=== PATIENT | female | born 1950 | race Caucasian/White ===

== ENCOUNTER 2020-06-07 11:25 | Outpatient (RCR) | payer MEDICARE, SELFPAY ==
[2017-02-23 12:22] VITALS: BMI 31.8
[2020-06-07] MEDS: COVID-19 VACC, MRNA(PFIZER)/PF 30 MCG/0.3 ML SYRINGE IM (08:30)
[2020-06-28] MEDS: COVID-19 VACC, MRNA(PFIZER)/PF 30 MCG/0.3 ML SYRINGE IM (07:57)
== END 2020-06-07 23:59 ==
LOC: IMMUN 11:25
PROVIDERS: PCP Internal Medicine; Referring Provider Family Medicine; Visit Provider Family Medicine
DX: Z23 Encounter for immunization (principal)
CPT/HCPCS: 0001A; 0002A

== ENCOUNTER → 2021-12-16 | Outpatient (CLI) | payer MEDICARE, SELFPAY ==
--- NOTE | 2021-12-16 10:45 | VDLE_ITS ---
Reason For Study: Edema RIGHT LEFT GSV is normal. GSV is normal. CFV is compressible, spontaneous, phasic, CFV is compressible, spontaneous, phasic, competent and demonstrates normal competent, and demonstrates normal augmentation. augmentation. FV is compressible, spontaneous, phasic, FV is compressible, spontaneous, phasic, competent and demonstrates normal competent and demonstrates normal augmentation. augmentation. POP V is compressible, spontaneous, phasic, POP V is compressible, spontaneous, phasic, competent and demonstrates normal competent and demonstrates normal augmentation. augmentation. T/P Trunk is compressible. T/P Trunk is compressible. PTV is compressible. PTV is compressible. RT PerV is compressible. LT PerV is compressible. Procedure This is a venous duplex using B-mode, color flow and spectral Doppler. Exam performed in department. A preliminary report was called and/or faxed to Dr. Griffiths. VL/Venous Duplex US - Jude Extrem Interpretation Summary Deep veins of the lower extremities are bilaterally patent and compressible seg mentally. There is no evidence of deep vein thrombosis on either side. Valvular competence appears in tact within the proximal deep venous systems bilaterally. The great saphenous veins appear bila terally patent and compressible segmentally. Ordering Physician: Colby Griffiths Referring Physician: Yael Cain Performed By: Liset Jolly RVT
== END | disposition home or self-care (01) ==
LOC: CVS 10:44
PROVIDERS: PCP Internal Medicine; Referring Provider Podiatrist; Visit Provider Podiatrist
DX: R60.0 Localized edema (principal); I87.2 Venous insufficiency (chronic) (peripheral)
CPT/HCPCS: 93970

== ENCOUNTER → 2022-03-04 | Outpatient (CLI) | payer MEDICARE, SELFPAY ==
--- NOTE | 2022-03-04 12:34 | VDLE_ITS ---
Reason For Study: LEG PAIN RIGHT LEFT CFV is compressible, spontaneous, phasic, CFV is compressible, spontaneous, phasic, competent and demonstrates normal competent, and demonstrates normal augmentation. augmentation. FV is compressible, spontaneous, phasic, FV is compressible, spontaneous, phasic, competent and demonstrates normal competent and demonstrates normal augmentation. augmentation. POP V is compressible, spontaneous, phasic, POP V is compressible, spontaneous, phasic, competent and demonstrates normal competent and demonstrates normal augmentation. augmentation. T/P Trunk is compressible. T/P Trunk is compressible. PTV is compressible. PTV is compressible. RT PerV is compressible. LT PerV is compressible. SFJ is competent and measures 0.65 x 0.67 cm. SFJ is competent and measures 0.64 x 0.62 cm. GSV proximal thigh measures 0.45 x 0.47 cm. GSV proximal thigh measures 0.35 x 0.40 cm. GSV at knee measures 0.35 x 0.38 cm. GSV at knee measures 0.20 x 0.22 cm. GSV is competent throughout. GSV is competent throughout. SSV proximal calf is competent and measures SSV proximal calf is competent and measures 0.28 x 0.30 cm. 0.30 x 0.34 cm. Procedure Exam performed in department. This is a venous duplex using B-mode, color flow and spectral Doppler. The exam was diagnostic. VL/Venous Duplex US - Jude Extrem Interpretation Summary Deep veins of the lower extremities are bilaterally patent and compressible seg mentally. There is no evidence of deep vein thrombosis on either side. Valvular competence appears in tact within the proximal deep venous systems bilaterally. The great saphenous veins appear bila terally patent and compressible segmentally. Sapheno-femoral junctions are bilaterally competent . Valvular competence appears to be intact segmentally within the great saphenous veins bilaterally. Small saphenous veins are patent and competent bilaterally. Ordering Physician: Colby Griffiths Performed By: Joni Burns RVT
== END | disposition home or self-care (01) ==
LOC: CVS 12:33
PROVIDERS: PCP Internal Medicine; Visit Provider Podiatrist
DX: M79.661 Pain in right lower leg (principal); M79.662 Pain in left lower leg; I87.2 Venous insufficiency (chronic) (peripheral); R60.0 Localized edema
CPT/HCPCS: 93970

== ENCOUNTER 2023-09-13 12:54 | Emergency (ER) | payer MEDICARE, SELFPAY ==
[2023-09-13 12:55] VITALS: BP 191/70; PULSE 77; RESP 16; TEMP 36.4; O2SAT 98; BMI 32.4
--- NOTE | 2023-09-13 12:58 | RAD_ITS ---
INDICATION: INJURY EXAMINATION/TECHNIQUE: X-RAY - LEFT XR Elbow Min 3 Views COMPARISON: No relevant prior comparison study available FINDINGS: SOFT TISSUES: No soft tissue swelling or gas. No radiopaque foreign body. BONES/JOINTS: There is displacement of the anterior fat pad. There is an intra-articular slightly depressed fracture of the radial head. Normal alignment. Preservation of the joint space. No sclerotic or destructive changes observed. RAD/Elbow min 3 Views IMPRESSION: Fracture of the radial head. Electronically Signed: Juan Remy MD at 13:38 EDT ,
--- NOTE | 2023-09-13 12:58 | RAD_ITS ---
INDICATION: INJURY EXAMINATION/TECHNIQUE: X-RAY - LEFT XR Wrist Min 3 Views 3 VIEWS COMPARISON: No relevant prior comparison study available FINDINGS: SOFT TISSUES: No soft tissue swelling or gas. No radiopaque foreign body. BONES/JOINTS: No acute fracture or subluxation.. Normal alignment. Preservation of the joint space.. No sclerotic or destructive changes observed. RAD/Wrist min 3 Views IMPRESSION: No evidence of acute fracture. Electronically Signed: Juan Remy MD at 13:34 EDT ,
--- NOTE | 2023-09-13 14:08 | EDS_ITS ---
HPI <CARRIE Mancia - Last Filed: 09/13/23 14:59> History of Present Illness Chief Complaint: Upper Extremity Injury Narrative Narrative: Patient presenting today after a mechanical fall that occurred this afternoon. She reports that she was at the park with [place] when she stepped off the [place] and lost her balance and fell onto her left knee and left elbow. She reports pain to her left elbow and left wrist with an abrasion to her left knee. Tetanus is not up-to-date. She did not hit her head and denies LOC. She is able to ambulate. PFSH <CARRIE Mancia - Last Filed: 09/13/23 14:59> PFSH Medical History Painful orthopaedic hardware Home Medications ?Medication ?Instructions ?Recorded ?Last Taken ?Type hydrocodone-acetaminophen 5-325mg 1 tab PO Q6H PRN PRN Pain ##14 02/12/17 Unknown Rx 5mg-325mg calcium carbonate 600 mg-vitamin 2 ea PO DAILY 02/20/17 Unknown History D3 12.5 mcg (500 unit) capsule carbidopa 25 mg-levodopa 100 mg 2 tab PO QHS 02/20/17 Unknown History tablet omeprazole 20 mg capsule,delayed 20 mg PO DAILY 02/20/17 02/23/17 08:00 History release simvastatin 40 mg tablet 40 mg PO QHS 02/20/17 Unknown History hydrocodone-acetaminophen 5-325mg 1 tab PO Q4H PRN PRN Pain 3 days 09/13/23 Unknown Rx 5mg-325mg #10 TABLETS Allergy/AdvReac Type Severity Reaction Status Date / Time meloxicam Allergy Mild Rash Verified 09/13/23 12:57 celecoxib AdvReac Hives Verified 09/13/23 12:57 prednisone AdvReac Hives Verified 09/13/23 12:57 Surgical History H/O right wrist surgery H/O: hysterectomy Social History Smoking Status: Former smoker alcohol intake: never ROS <CARRIE Mancia - Last Filed: 09/13/23 14:59> ROS ED Constitutional Constitutional ED: Denies chills or fever(s) Cardiovascular Cardiovascular: Denies chest pain Respiratory/Chest Respiratory/Chest: Denies dyspnea Gastrointestinal Gastrointestinal: Denies abdominal pain Musculoskeletal Musculoskeletal: Reports arthralgias Integumentary Reports Abrasions Neurologic Neurologic: Denies paresthesias EXAM <CARRIE Mancia - Last Filed: 09/13/23 14:59> Physical Exam Const Vital Signs: 09/13/23 12:55 Temperature 97.6 F L Temperature Source Temporal Pulse Rate 77 Respiratory Rate 16 Blood Pressure 191/70 H Blood Pressure Mean 110 Pulse Ox 98 Oxygen Delivery Method Room Air Positive well nourished, well developed and no apparent distress General Appearance ED: well developed HEENT Reports normocephalic and head/scalp atraumatic Mouth ED: Yes moist mucous membranes normal Eyes PERRL and EOMs intact bilaterally Neck full ROM and supple Chest Wall inspection of chest normal Resp normal respiratory effort and clear to auscultation bilaterally Cardio regular rate and regular rhythm Back/Spine normal ROM and normal to inspection Extremity Extremity Narrative: Small superficial abrasion to the left elbow with full ROM, pain palpation to the radial head. Slight swelling to the dorsal and radial aspect of the left wrist, no snuffbox tenderness, full range of motion to the left wrist. Left radial pulse 2+, good capillary refill, sensation intact. Abrasion to the left knee with no joint effusion and full ROM. Neuro oriented x3, CN's II-XII intact bilaterally, moves all extremities, no focal motor deficits and no sensory deficits noted Sensorium / Orientation: awake and alert Psych mental status grossly normal and thought process normal MDM <CARRIE Mancia - Last Filed: 09/13/23 14:59> [facility] Narrative Medical decision making narrative: Patient presenting today due to a mechanical fall that occurred this afternoon. She has pain to her left elbow and wrist. Tetanus updated given abrasion to left knee. She does not have any pain to her left knee to indicate need for imaging. There was no head injury. She does have a fracture of the left radial head. Patient placed in a sling. She will be given a orthopedic referral for follow-up. RICE instructions were discussed. I did offer analgesia here but patient did drive and declined Tylenol. She will be given a prescription for [place] and discharged home in stable condition. Radiography X-Ray: Read by ED Physician Diagnostic Testing: Clinical Impression(s) from Imaging Studies Elbow X-Ray 09/13/23 12:58 IMPRESSION: Fracture of the radial head. Electronically Signed: Juan Remy MD at 13:38 EDT , Wrist X-Ray 09/13/23 12:58 IMPRESSION: No evidence of acute fracture. Electronically Signed: Juan Remy MD at 13:34 EDT , <Dr. Josiah Elias MD - Last Filed: 09/13/23 15:45> MDM Treatment and Re-Evaluation Narrative: I have personally performed a face to face assessment of the patient and have reviewed the KAVIN Note. I performed a substantive portion of the visit including all aspects of the following. My moeller findings include: History is patient tripped and fell while in the park. No prodromal symptoms. Scraped up her left knee and injured her left elbow and wrist. No head injury. Able to walk. Exam is abrasion just distal to the left knee full range of motion of the knee without effusion or knee joint tenderness. Tender at the medial epicondyle and the radial head of the left elbow she has good range of motion but with pain. She has some tenderness in the proximal aspect of the first metacarpal but not at the snuffbox and there is no pain with axial loading of the thumb and she has full range of motion of that. Some mild discomfort with palpation of the distal radius but full range of motion of the wrist. Medical Decison Making x-rays evaluated. 3 views of the left wrist negative for any acute mitral rotation, and 3 views of the left elbow on my interpretation show a radial head fracture with minimal displacement. She is moving it well. There is an anterior fat pad sign but no posterior fat pad. Will place her in a sling and have her follow-up with orthopedics, she was offered analgesics but declines and states that Tylenol will do. Other additions or changes: [None] Discharge Plan Triage Chief Complaint: Upper Extremity Injury ED Midlevel Provider: Danelle Lund ED Provider: Josiah Elias Dx/Rx/DC Orders Clinical Impression: Fall, Multiple abrasions, Left radial head fracture, Left wrist sprain Instructions: ED Radial Head Fracture, ED Wrist Sprain Prescriptions: New hydrocodone-acetaminophen 5-325 mg tablet 1 tab PO Q4H PRN PRN (Reason: Pain) 3 Days Qty: 10 0RF No Action hydrocodone-acetaminophen 1 TABLET tablet 1 tab PO Q6H PRN PRN (Reason: Pain) Qty: 14 0RF simvastatin 40 MG tablet 40 mg PO QHS omeprazole 20 MG capsule 20 mg PO DAILY Patient Comments: heartburn carbidopa-levodopa 1 TABLET tablet 2 tab PO QHS Patient Comments: RLS calcium carbonate-vitamin D3 1 EACH capsule 2 ea PO DAILY Primary Care Provider: Yael Cain Referrals: Yael Cain MD [Primary Care Provider] - Nino Holder MD [Med Staff - Active Staff] - 5-7 Days Activity Restrictions/Additional Instructions: Follow-up with orthopedics. Print Language: Urdu Disposition Disposition: Home, Self Care Discharge Date/Time: 09/13/23 14:46
[2023-09-13] MEDS: Diphth,Pertuss(Acell),Tet Vac 0.5 ML Vial IM (14:27)
[2023-09-13 14:46] VITALS: BP 132/78; PULSE 64; RESP 18; TEMP 36.4; O2SAT 99
== END 2023-09-13 14:46 | disposition home or self-care (01) ==
PROVIDERS: Emergency Provider Emergency Medicine; PCP Internal Medicine; Visit Provider Emergency Medicine
DX: S52.122A Displaced fracture of head of left radius, initial encounter for closed fracture (principal); S80.212A Abrasion, left knee, initial encounter; Z87.891 Personal history of nicotine dependence; S50.312A Abrasion of left elbow, initial encounter; S63.502A Unspecified sprain of left wrist, initial encounter; W17.89XA Other fall from one level to another, initial encounter; Y92.830 Public park as the place of occurrence of the external cause; Z23 Encounter for immunization
CPT/HCPCS: 73080; 73110; 90471; 90715; 99283

== ENCOUNTER → 2024-01-27 | Outpatient (CLI) | payer MEDICARE, SELFPAY ==
--- NOTE | 2024-01-27 16:24 | CT_ITS ---
EXAM: CT LEFT UPPER EXTREMITY WITHOUT INTRAVENOUS CONTRAST, HUMERUS CLINICAL INDICATION: UPPER ARM TRAUMA/CONTUSION L UPPER ARM TECHNIQUE: Helically acquired images were obtained of the left humerus without intravenous contrast. 2-D reformats were performed by the technologist. CTDIvol = ( 27.61 ) mGy, DLP = ( 1161.41 ) mGycm This CT exam was performed using one or more of the following dose reduction techniques: automated exposure control, adjustment of the mA and/or kV according to patient size, and/or use of iterative reconstruction technique. COMPARISON: No relevant prior studies available. 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 No acute or healing fracture or malalignment. Normal alignment of the glenohumeral joint. No suspicious lytic or sclerotic lesions of bone. SOFT TISSUES: Unremarkable. No soft tissue swelling or gas. No radiopaque foreign body. TUBES, LINES AND DEVICES: Visualized left lung is clear. Linear pleural parenchymal scarring noted at the left lower lobe. OTHER FINDINGS: No hemorrhage or hematoma. CT/Extremity Upper without Contra IMPRESSION: No acute or healing fracture or malalignment. Electronically Signed: Shahriar Alegre MD at 0:22 EDT ,
--- OUTSIDE RECORDS SUMMARY | 2024-01-27 19:38 | XMS RPT_ITS | CCD ---
Author Organization [facility] Care Team Providers Care Staff Assistant Name Role Phone Ant FELDMAN, Yael Primary Care Provider OLDER, CASSANDRA Referring Unavailable GANTA, YAEL Primary Care Unavailable GANTA, YAEL Primary Care Unavailable GANTA, YAEL Referring Unavailable OLDER, CASSANDRA Attending Unavailable GANTA, YAEL Primary Care Unavailable OLDER, CASSANDRA Referring Unavailable OLDER, CASSANDRA Attending Unavailable SELF Referring Unavailable GANTA, YAEL Primary Care Unavailable GANTA, YAEL Primary Care Unavailable GANTA, YAEL Primary Care Unavailable Allergies Allergy Classification Reported Allergen(s) Allergy Type Date of Onset Reaction(s) Facility (20 sources) celecoxib; Translations: [CELECOXIB] Drug Allergy 06-29-2015 Rash, Hives, Itching [facility] Work Phone: (20 sources) meloxicam; Translations: [MELOXICAM] Drug Allergy 06-29-2015 Mental Status Change [facility] Work Phone: (20 sources) predniSONE; Translations: [PREDNISONE] Drug Allergy 06-29-2015 Rash, Swelling [facility] Work Phone: Medications Current Medications Medication Drug Class(es) Dates Sig (Normalized) Sig (Original) Calcium (19 sources) Phosphate Binder, Calcium Start: 05-04-2017 rxz-P0-[id number]-zinc-c op-jeff-bor 600 mg calcium- 800 unit-50 mg tab Take 1,200 mg by mouth once daily. 05/04/2017 Active Start: 05-04-2017 eve-X0-xrm45-z ejp-bom-reif-bor 600 mg calcium- 800 unit-50 mg tab Take 1,200 mg by mouth once daily. 0 05/04/2017 Active Start: 05-04-2017 wur-C0-hjc05-z gjy-jcp-gycy-bor (CALTRATE 600+D PLUS MINERALS) 600 mg calcium- 800 unit-50 mg tab Take 1,200 mg by mouth once daily. 0 05/04/2017 Active Comment on above: Take 1,200 mg by jd once daily. carbidopa 25 mg / levodopa 100 mg oral tablet (20 sources) Aromatic Amino Acid Decarboxylation Inhibitor, Aromatic Amino Acid Start: 1 End: 4 take 1 tablet by mouth twice daily carbidopa-levodopa (SINEMET 25-100) 25-100 mg per tablet Indications: Restless legs syndrome (RLS) Take 1 tablet by mouth two times a day. 180 tablet 3 11/25/2023 Active Comment on above: Take 1 tablet by jd twice daily. TAKE 1 TABLET TWICE DAILY Magnesium (19 sources) Start: 1 take 1 tablet by mouth once daily Magnesium 250 mg tab Take 1 tablet by mouth once daily. 04/20/2020 Active Start: 04-20-2020 take 1 tablet by jd once daily Magnesium 250 mg tab Take 1 tablet by mouth once daily. 0 04/20/2020 Active Comment on above: Take 1 tablet by jd once daily. omeprazole 20 mg delayed release oral capsule (20 sources) Proton Pump Inhibitor Start: 01-26-20 End: 11-24-19 24 take 1 capsule by mouth once daily omeprazole (PRILOSEC) 20 mg capsule Indications: Gastroesophageal reflux disease without esophagitis Take 1 capsule by mouth once daily. 90 capsule 3 11/25/2023 Active Comment on above: Take 1 capsule by [facility] once daily. TAKE 1 CAPSULE EVERY DAY polyethylene glycol 3350 51912 mg powder for oral solution (20 sources) Osmotic Laxative Start: 05-04-19 18 polyethylene glycol 3350 (MIRALAX, GLYCOLAX) 17 gram/dose powder 1 Bottle 05/04/2017 Active Start: 06-29-2015 End: 07-02-2022 take 1 dose by mouth once daily polyethylene glycol 3350 (MIRALAX, GLYCOLAX) 17 gram packet Take 1 Packet by mouth once daily. 0 06/29/2015 07/02/2022 Discontinued (Duplicate Entry) Comment on above: Take 1 Packet by jd once daily. simvastatin 40 mg oral tablet (20 sources) HMG-CoA Reductase Inhibitor Start: 1 End: 4 take 1 tablet by mouth once daily at bedtime simvastatin (ZOCOR) 40 mg tablet Indications: Mixed hyperlipidemia Take 1 tablet by mouth daily at bedtime. 90 tablet 3 11/25/2023 Active Comment on above: Take 1 tablet by jd th daily at bedtime. TAKE 1 TABLET DAILY AT BEDTIME. Completed/Discontinued Medications Medication Drug Class(es) Dates Sig (Normalized) Sig (Original) benzonatate 100 mg oral capsule (3 sources) Non-narcotic Antitussive Start: 07-07-2022 End: 09-17-2022 take 1 capsule by mouth every eight hours as needed benzonatate (TESSALON PERLES) 100 mg capsule Take 1 capsule by mouth three times daily as needed for cough. 15 capsule 0 07/07/2022 09/17/2022 Discontinued Comment on above: Take 1 capsule by mo uth three times daily as needed for cough. glucosamine 1000 mg oral tablet (11 sources) Start: 06-29-2015 End: 01-02-2023 take 1 tablet by mouth once daily Glucosamine 1,000 mg tab Take 1 tablet by mouth once daily. 0 06/29/2015 01/02/2023 Discontinued Comment on above: Take 1 tablet by jd th once daily. vitamin b6 100 mg oral tablet (11 sources) Start: 05-04-2017 End: 01-02-2023 take 1 tablet by mouth once daily pyridoxine, vitamin B6, (VITAMIN B6) 100 mg tablet Take 1 tablet by mouth once daily. 0 05/04/2017 01/02/2023 Discontinued Comment on above: Take 1 tablet by jd th once daily. Problems Active Problems Problem Classification Problem Date Documented Date Episodic/Chronic Disorders of lipid metabolism (20 sources) Mixed hyperlipidemia; Translations: [Mixed hyperlipidemia] Onset: 06-29-2015 04-01-2021 Chronic Esophageal disorders (20 sources) Gastroesophageal reflux disease without esophagitis; Translations: [Gastro-esophageal reflux disease without esophagitis] Onset: 06-29-2015 10-31-2016 Chronic Immunizations and screening for infectious disease (1 source) Needs influenza immunization; Translations: [Encounter for immunization] Episodic Other connective tissue disease (1 source) Falls; Translations: [Repeated falls] 01-04-2024 Episodic Other hereditary and degenerative nervous system conditions (20 sources) Restless legs; Translations: [Restless legs syndrome] Onset: 06-29-2015 04-01-2021 Chronic Other nutritional; endocrine; and metabolic disorders (9 sources) Simple obesity ; Translations: [Other obesity due to excess calories] Onset: 10-31-2016 10-31-2016 Chronic Other nutritional; endocrine; and metabolic disorders (18 sources) Obese class I; Translations: [Obesity, unspecified] Onset: 12-23-2021 Chronic Other nutritional; endocrine; and metabolic disorders (10 sources) Obesity caused by energy imbalance; Translations: [Other obesity due to excess calories] Onset: 10-31-2016 10-31-2016 Chronic Other upper respiratory infections (2 sources) Acute sinusitis; Translations: [Acute sinusitis, unspecified] Episodic Residual codes; unclassified (1 source) Procedure not done; Translations: [Procedure and treatment not carried out, unspecified reason] 09-13-2023 Episodic Substance-related disorders (19 sources) Tobacco dependence in remission; Translations: [Nicotine dependence, unspecified, in remission] Onset: 10-31-2016 10-31-2016 Chronic Past or Other Problems Problem Classification Problem Date Documented Da te Episodic/Chronic Diabetes mellitus without complication (4 sources) Prediabetes; Translations: [Prediabetes] Onset: 06-26-2023 Episodic Other bone disease and musculoskeletal deformities (19 sources) Osteopenia; Translations: [Other specified disorders of bone density and structure, unspecified site] Onset: 03-24-2016 10-31-2016 Episodic Other connective tissue disease (19 sources) Tendinitis of left posterior tibial tendon; Translations: [Posterior tibial tendinitis, left leg] Onset: 09-22-2018 09-22-2018 Episodic Other non-traumatic joint disorders (19 sources) Ankle pain; Translations: [Pain in left ankle and joints of left foot] Onset: 09-22-2018 09-22-2018 Episodic Other screening for suspected conditions (not mental disorders or infectious disease) (8 sources) Patient encounter status; Translations: [Encounter for screening mammogram for malignant neoplasm of breast] Onset: 07-16-2023 Episodic Spondylosis; intervertebral disc disorders; other back problems (19 sources) Low back pain; Translations: [Bilateral low back pain without sciatica] Onset: 10-31-2016 10-31-2016 Episodic Results Test Name Value Interpretation Reference Range Facility [facility] 01-04-2024 CNOV Office Visit (INTMWS ) A ([id number]) 1950 F Date Time Provider Department 01/04/24 8:00 AM CASSANDRA CALLES INTFLOYD During your visit today, we recorded the following information about you: Pulse Respiration Blood pressure Weight 70/minute 16/minute 132/70 87.5 kg Cassandra Calles APRN.CNP 01/04/2024 8:25 AM Signed Selena Thursday is a 73 year old female here for a Medicare wellness visit. Medicare Health Risk Assessment General Health Very good Exercise: Minutes/Day 90 min Exercise: Days/Week 7 days Alcohol: Daily Use Never Alcohol: Drinks/Day Patient does not drink Alcohol: 6 or more drinks Never Feel off balance No Concerns: Teeth/Dentures No Concerns: Sexual function No Troubled by feelings None of the above Frequency: Eating healthy diet Several days ADLs requiring help None of the above Safety precautions in home/vehicle Yes Smoke, vape, chews tobacco No Difficulty hearing No Difficulty seeing No Current Providers Specialists: I have reviewed specialist-related care of the patient in the medical record. Orthopedic: Dr. Lucio - Fell 6 months ago tripping on a walking trail breaking her left arm. Fracture did not require surgery and healed well with a cast and sling. Has not fallen since. Denies any weakness, further falls, or unsteady gait. Optometry: Dr. Ramos, has been seen in the last 4 months. Medical/Family history review Reviewed and updated problem list, medical/surgical/famil y/social history, medications, and allergies. Opioid use review Opioid Medications (last 90 days) No data to display Anxiety/Depression screening PHQ-9 Score: 2 (Minimal Depression) RODDY-2 Score: 0 (Lower risk for anxiety) Recommendation: no further intervention at this time Cognitive screening Mini Cog Score: 5 Cognitive screening reviewed and No further action needed (score 3-5). Functional Observation Was the patient's Timed Up AND Go test unsteady or >= 12 seconds? No Advance Care Planning Surrogate decision maker and/or advance care plan documented Measurements BP 132/70 Pulse 70 Resp 16 Wt 87.5 kg (193 lb) SpO2 98% BMI 32.12 kg/m? Vision Screening: Follows with optometry/ophthalmolog y Assessment/Plan Medicare annual wellness visit, subsequent (Z00.00) - Counseled on healthy diet and regular exercise - Fall avoidance information provided - Personalized prevention plan provided - Discussed need for and benefit of weight loss. BMI 32.12 kg/(m2) ASSESSMENT/PLAN: 1. Medicare annual wellness visit, subsequent - ICD9: V70.0, ICD10: Z00.00 (primary diagnosis) - Counseled on healthy diet and regular exercise - Discussed need and benefit for weight loss. BMI 32.12 kg/(m2) - Follow up for annual exam in one year 2. Falling episodes - ICD9: 781.99, E888.9, ICD10: R29.6 1 episode of mechanical fall. Discussed fall prevention. - FALLS RISK EDUCATION 3. Screening for depression - ICD9: V79.0, ICD10: Z13.31 negative - DEPRESSION SCREENING 4. Encounter for screening examination for other mental health and behavioral disorders - ICD9: V79.8, ICD10: Z13.39 negative - ANXIETY SCREENING KASHIF Hitchcock Joy, APRN.CNP 01/04/2024 8:14 AM Signed Screening schedule The following prevention plan is recommended: Depression Screening Never done Anxiety Screening Never done Colorectal Cancer Screening due on 02/03/2024 WHAT YOU CAN DO TO PREVENT FALLS Many falls can be prevented. By making some changes, you can lower your chances of falling. Four things YOU can do to prevent falls for you* and your caregiver 1. Begin a regular exercise program Exercise is one of the most important ways to lower your chances of falling. It makes you stronger and helps you feel better. Exercises that improve balance and coordination (like Leonard Chi) are the most helpful. Lack of exercise leads to weakness and increases your chances of falling. Ask your doctor or health care provider about the best type of exercise program for you. 2. Have your health care provider review your medicines Have your doctor or pharmacist review all the medicines you take, even xbaq-xyp-affbvvr medicines. As you get older, the way medicines work in your body can change. Some medicines, or combinations of medicines, can make you sleepy or dizzy and can cause you to fall. 3. Have your vision checked Have your eyes checked by an eye doctor at least once a year. You may be wearing the wrong glasses or have a condition like glaucoma or cataracts that limits your vision. Poor vision can increase your chances of falling. 4. Make your home safer About half of all falls happen at home. To make your home safer: Remove things you can trip over (like papers, books, clothes, and shoes) from stairs and places where you walk. Remove small throw rugs or use double-sided tape to keep the rugs f (more content not included)... [facility] (JUANITO) ([id number]) 1950 F Date Time Provider Department 01/04/24 CASSANDRA CALLES During your visit today, we recorded the following information about you: Cassandra Calles APRN.CNP 01/04/2024 8:27 AM Signed Orders placed for next visit. Cassandra Calles APRN.CNP Allergies As of Date: 01/04/2024 Noted Allergy Reaction CELECOXIB 06/29/2015 2 - Rash 4 - Hives 9 - Itching Comments: Also known as Celebrex MELOXICAM 06/29/2015 1 - Mental Status Change Comments: patient did not feel right when on this med PREDNISONE 06/29/2015 2 - Rash 7 - Swelling Date Reviewed: 01/04/2024 Reviewed by: Cassandra Calles APRN.CNP - Fully Assessed Reason for Visit: Orders [681] Primary Visit Diagnosis:Mixed hyperlipidemia [E78.2] Other Visit Diagnosis:Prediabetes [R73.03] Order(s):LIPID PANEL BASIC [SQLIPB] Order #: [id number] FUTURE COMPREHENSIVE METABOLIC PANEL [SQCMP] Order #: [id number] FUTURE COMPLETE BLOOD COUNT [SQCBC] Order #: [id number] FUTURE HEMOGLOBIN A1C [HQMET3N] Order #: [id number] FUTURE Prescriptions as of 01/04/2024 - omeprazole (PRILOSEC) 20 mg capsule Take 1 capsule by mouth once daily. - simvastatin (ZOCOR) 40 mg tablet Take 1 tablet by mouth daily at bedtime. - carbidopa-levodopa (SINEMET 25-100) 25-100 mg per tablet Take 1 tablet by mouth two times a day. - Magnesium 250 mg tab Take 1 tablet by mouth once daily. - grq-L0-qad52ldn36-ospu-vbm- jeff-bor 600 mg calcium- 800 unit-50 mg tab Take 1,200 mg by mouth once daily. - polyethylene glycol 3350 (MIRALAX, GLYCOLAX) 17 gram/dose powder Problem List As Of Date 01/04/2024 Noted Resolved Restless legs syndrome (RLS) [G25.81] 06/29/2015 Mixed hyperlipidemia [E78.2] 06/29/2015 Gastroesophageal reflux disease without esophag*06/29/2015 Osteopenia [M85.80] 03/24/2016 Bilateral low back pain without sciatica [M54.5*10/31/2016 Non morbid obesity due to excess calories [E66.*10/31/2016 Tobacco abuse, in remission [F17.201] 10/31/2016 Left ankle pain [M25.572] 09/22/2018 Posterior tibial tendinitis of left leg [M76.82*09/22/2018 Obesity (BMI 30.0-34.9) [E66.9] 12/23/2021 Encounter Status:Closed by CASSANDRA CALLES on 01/04/24 Normal [facility] Breana 11-27-2023 CNOV Office Visit (UCWSTR ) ([id number]) 1950 F Date Time Provider Department 11/27/23 7:[address] [facility] During your visit today, we recorded the following information about you: Temperature Pulse Respiration Blood pressure 97.5 degrees 70/minute 18/minute 130/78 Weight 87 kg Christian Alcazar MD 11/27/2023 8:55 AM Addendum Patient presents with: Sinus Problem: Nasal congestion,fatigue, cough, fever,ears itch, Left worse x 5 days HPI: Feeling sick starting 5 days ago. She is improving and was able to perform her usual walking yesterday. Her sinuses are still full. Positive symptoms: Cough, ears itch, Sinus pressure, Nasal Congestion, initial day fever, Fatigue, Headache, Diarrhea, Negative symptoms: Shortness of breath, Sore throat, Vomiting, Rhinorrhea, OTC: Lozenges, Tylenol, loratidine MEDICATIONS: Current Outpatient Medications Medication Sig omeprazole (PRILOSEC) 20 mg capsule Take 1 capsule by mouth once daily. simvastatin (ZOCOR) 40 mg tablet Take 1 tablet by mouth daily at bedtime. carbidopa-levodopa (SINEMET 25-100) 25-100 mg per tablet Take 1 tablet by mouth two times a day. Magnesium 250 mg tab Take 1 tablet by mouth once daily. kto-D3-ohd95sll96-xoty-bon- jeff-bor 600 mg calcium- 800 unit-50 mg tab Take 1,200 mg by mouth once daily. polyethylene glycol 3350 (MIRALAX, GLYCOLAX) 17 gram/dose powder No current facility-administered medications for this visit. ALLERGIES: ALLERGIES Allergen Reactions Celecoxib Rash, Hives, Itching Also known as Celebrex Meloxicam Mental Status Change patient did not feel right when on this med Prednisone Rash, Swelling VITALS: BP 130/78 Pulse 70 Temp 36.4 ?C (97.5 ?F) Resp 18 Wt 87 kg (191 lb 12.8 oz) SpO2 98% BMI 31.92 kg/m? PHYSICAL EXAM: GEN: mildly ill appearing HEENT: PERRL, EOMI, conjunctiva clear Ears: canals clear. TMs without erythema, bulge, or effusion Sinuses: non-tender frontal sinus, non-tender maxillary sinuses Throat: moist mucous membranes, no erythema, no exudate Neck: supple, no thyromegaly, no lymphadenopathy HEART: regular rate and rhythm, no murmurs LUNGS: clear to auscultation, no wheezes or crackles, no increased WOB ASSESSMENT/PLAN: 1. URI, acute - ICD9: 465.9, ICD10: J06.9 - viral URI, suspect COVID-19. - Discussed supportive care treatment with rest, cold medicine, and analgesia. - She is beyond the therapeutic window for antiviral medication. Returned after discharge for COVID test - ordered. - Red flags to seek further treatment include chest pain, shortness of breath, and lethargy; in the ER if severe. MD Ottoniel Valladares Kevin J, MD 11/27/2023 8:55 AM Signed Addended by: CHRISTIAN ALCAZAR on: 11/27/2023 08:55 AM Modules accepted: Orders Allergies As of Date: 11/27/2023 Noted Allergy Reaction CELECOXIB 06/29/2015 2 - Rash 4 - Hives 9 - Itching Comments: Also known as Celebrex MELOXICAM 06/29/2015 1 - Mental Status Change Comments: patient did not feel right when on this med PREDNISONE 06/29/2015 2 - Rash 7 - Swelling Date Reviewed: 11/27/2023 Reviewed by: Elva Jeff LPN - Fully Assessed Reason for Visit: Sinus Problem [99] Cmt: Nasal congestion,fatigue, cough, fever,ears itch, Left worse x 5 days Primary Visit Diagnosis:URI, acute [J06.9] Order(s):COVID NAAT, UPPER RESPIRATORY, ROUTINE [SQCOVID] Order #: [id number]. #:[id number] Prescriptions as of 11/27/2023 - omeprazole (PRILOSEC) 20 mg capsule Take 1 capsule by mouth once daily. - simvastatin (ZOCOR) 40 mg tablet Take 1 tablet by mouth daily at bedtime. - carbidopa-levodopa (SINEMET 25-100) 25-100 mg per tablet Take 1 tablet by mouth two times a day. - Magnesium 250 mg tab Take 1 tablet by mouth once daily. - jgo-Q1-mmy18flj83-oxnl-kza- jeff-bor 600 mg calcium- 800 unit-50 mg tab Take 1,200 mg by mouth once daily. - polyethylene glycol 3350 (MIRALAX, GLYCOLAX) 17 gram/dose powder Problem List As Of Date 11/27/2023 Noted Resolved Restless legs syndrome (RLS) [G25.81] 06/29/2015 Mixed hyperlipidemia [E78.2] 06/29/2015 Gastroesophageal reflux disease without esophag*06/29/2015 Osteopenia [M85.80] 03/24/2016 Bilateral low back pain without sciatica [M54.5*10/31/2016 Non morbid obesity due to excess calories [E66.*10/31/2016 Tobacco abuse, in remission [F17.201] 10/31/2016 Left ankle pain [M25.572] 09/22/2018 Posterior tibial tendinitis of left leg [M76.82*09/22/2018 Obesity (BMI 30.0-34.9) [E66.9] 12/23/2021 Encounter Status:Closed by CHRISTIAN ALCAZAR on 11/27/23 Normal [facility] SARS-CoV-2 RNA Resp Ql EVONNE+p joann 11-27-2023 SARS-CoV-2 (COVID-19) RNA EVONNE+probe Ql (Resp) COVID 19 RESULT: Detected The method used is RT-PCR or an equivalent NAAT method. Reference Range (the expected result in uninfected individuals): Not detected Normal [facility] Comment on above: Performed By: #### 2 [id number], [id number] #### [facility] CLIA [id number] [address] [place] [address] OF [facility] CNOVon 09-13-2023 CNOV Office Visit (UCWSTR ) ([id number]) 1950 F Date Time Provider Department 09/13/23 12:[address] [facility] During your visit today, we recorded the following information about you: Niraj Dia APRN.ADDISON 09/13/2023 12:22 PM Signed Nontoxic-appearing female presents urgent care chief complaint right knee wrist elbow pain. Patient states was at the park today when she fell striking elbow and wrist knee on the ground. Patient states having a hard time straightening her elbow. Wrist is starting to swell become more painful. With patient's presenting symptoms I recommended patient be seen in urgent care or ER with x-ray capabilities today verbalized understanding agrees with plan of care. Niraj Dia APRN.POULTRY HATCHERY SUPERVISOR Allergies As of Date: 09/13/2023 Noted Allergy Reaction CELECOXIB 06/29/2015 2 - Rash 4 - Hives 9 - Itching Comments: Also known as Celebrex MELOXICAM 06/29/2015 1 - Mental Status Change Comments: patient did not feel right when on this med PREDNISONE 06/29/2015 2 - Rash 7 - Swelling Date Reviewed: 09/13/2023 Reviewed by: Niraj Dia APRN.POULTRY HATCHERY SUPERVISOR - Fully Assessed Primary Visit Diagnosis:Procedure not carried out [Z53.9] Prescriptions as of 09/13/2023 - simvastatin (ZOCOR) 40 mg tablet TAKE 1 TABLET DAILY AT BEDTIME. - carbidopa-levodopa (SINEMET 25-100) 25-100 mg per tablet TAKE 1 TABLET TWICE DAILY - omeprazole (PRILOSEC) 20 mg capsule TAKE 1 CAPSULE EVERY DAY - Magnesium 250 mg tab Take 1 tablet by mouth once daily. - dhk-P5-gku06icr89-kdfb-yya- jeff-bor 600 mg calcium- 800 unit-50 mg tab Take 1,200 mg by mouth once daily. - polyethylene glycol 3350 (MIRALAX, GLYCOLAX) 17 gram/dose powder Problem List As Of Date 09/13/2023 Noted Resolved Restless legs syndrome (RLS) [G25.81] 06/29/2015 Mixed hyperlipidemia [E78.2] 06/29/2015 Gastroesophageal reflux disease without esophag*06/29/2015 Osteopenia [M85.80] 03/24/2016 Bilateral low back pain without sciatica [M54.5*10/31/2016 Non morbid obesity due to excess calories [E66.*10/31/2016 Tobacco abuse, in remission [F17.201] 10/31/2016 Left ankle pain [M25.572] 09/22/2018 Posterior tibial tendinitis of left leg [M76.82*09/22/2018 Obesity (BMI 30.0-34.9) [E66.9] 12/23/2021 Encounter Status:Closed by NIRAJ DIA on 09/13/23 Normal [facility] CNCOon 07-16-2023 CNCO HNO ID: [id number] Author: COORDINATOR, MAMMOGRAPHY, ? Service: ? Author Type: Physician Type: Letter Filed: 07/16/2023 08:58 Note Text: July 16, 2023 PID: [id number] Thursday [address] [place] [address] Dear Ms. Thursday, We are pleased to inform you that the results of your recent breast imaging exam on 07/16/2023 are normal. Early detection of cancer is very important. We also understand recommendations regarding breast cancer screening are controversial. Please discuss with your primary care provider which strategy is best for you and whether a mammogram is right for you. Your imaging studies and report will be kept on file at [facility] as part of your permanent medical record and are available for your continuing care. Thank you for allowing us to help in meeting your health care needs. Sincerely, Dr. Mims Interpreting Radiologist [facility] (Normal over 40) Normal [facility] MARISSA SCREENINGon 07-16-2023 [facility] SCREENING * * *Final Report* * * DATE OF EXAM: Jul 16 2023 7:30AM [id number] - [facility] SCREENING / PROCEDURE REASON: Encounter for screening mammogram for breast cancer * * * * Physician Interpretation * * * * RESULT: #[id number] - [facility] SCREENING BILATERAL DIGITAL SCREENING MAMMOGRAM WITH CAD: 07/16/2023 HISTORY: /Screening Mammogram - patient reports NO breast symptoms /priors available for comparison Encounter For Screening Mammogram For Breast Cancer. RESULT: TECHNIQUE: The study was acquired using full field digital technology and interpreted from soft copy. Current study was also evaluated with a Computer Aided Detection (CAD). Comparison is made to exams dated: 07/10/2022 mammogram, 07/05/2021 mammogram, and 07/04/2020 mammogram - [facility] [facility] The breasts are almost entirely fatty. No significant masses, calcifications, or other findings are seen in either breast. There has been no significant interval change. IMPRESSION: NEGATIVE There is no mammographic evidence of malignancy. A 1 year screening mammogram is recommended. Corona cotter/de:07/16/2023 08:58:13 Mailer Apprentice(s): RT Aurora(R)(M), [facility] letter sent: Normal over 40 Mammogram BI-RADS: 1 Negative Multiple national specialty organizations have released breast cancer screening guidelines for women at average risk for developing breast cancer - guidelines that are based on both evidence and opinion, yet differ on when to start and how often to screen for breast cancer. With representation from Breast Imaging, Internal Medicine, Women's Health, Family Medicine, and Medical/Surgical Oncology, the [facility] has carefully reviewed the data and reached the following consensus: 1) All women should engage in shared decision-making with their providers to decide when to start and how often to screen; 2) All women should have the opportunity to start screening mammography at age 40; 3) For women ages 45-55, we recommend annual screening mammograms; 4) For women ages 55 and over, we support both the transition from an annual to a biennial interval if this aligns more with patient's values and preferences, or continuation with annual screening; 5) All women should discuss with their providers when to stop screening mammograms. Court Security Officer: De Transcribe Date/Time: Jul 16 2023 7:11A Dictated by: CORONA MIMS MD This examination was interpreted and the report reviewed and electronically signed by: CORONA MIMS MD on Jul 16 2023 8:58AM EST [id number] Normal [facility] Breast Screeningon 2023 [facility] CNOVon 07-01-2023 CNOV Office Visit (INTMWS ) THURSDAY,SELENA ([id number]) 1950 F Date Time Provider Department 07/01/23 8:20 AM CASSANDRA CALLES During your visit today, we recorded the following information about you: Pulse Respiration Blood pressure Weight 84/minute 16/minute 130/84 88 kg Cassandra Calles APRN.CNP 07/01/2023 8:43 AM Signed CC: Patient presents with: Recheck: 6 month follow up HPI Thursday is a 73 year old female who presents today for routine follow up. HLD: Walking 7 days a week for exercise and maintaining a healthy diet. Denies any chest pain, shortness of breath, or exercise intolerance. RLS: Controlled well with current treatment. GERD: Controlled well with current treatment. Denies heartburn, abdominal pain, nausea, or difficulty swallowing. Prediabetes: Diet controlled. Denies increase in thirst hunger or urination. REVIEW OF SYSTEMS General: no fevers, no chills, no night sweats, no recurrent infections, no change in appetite, no change in energy, and no significant changes in weight Respiratory: no cough, no wheezing, no shortness of breath, no hemoptysis Cardiovascular: no chest pain, no chest pressure, no palpitations, and no swelling GI: No nausea, vomiting, or diarrhea Endocrine: no fatigue, no polyuria, no polyphagia, and no polydipsia Neurologic: No headache, weakness, numbness, dizziness, memory loss, syncope. Psych: PHQ2 is 0 PAST MEDICAL HISTORY Diagnosis Date Protrusion of lumbar intervertebral disc L3-L4 PAST SURGICAL HISTORY Procedure Laterality Date CLOSED TREAT FRACTURE RADIUS AND ULNA;WO MAN 02/23/[address]Rodney Hope HYSTERECTOMY HX 1986 LUMBAR OR CAUDAL EPIDURAL STEROID INJECTION REMOVE CATARACT, INSERT LENS,EX 03/06/2016 ALLERGIES Celecoxib, Meloxicam, and Prednisone MEDICATIONS simvastatin (ZOCOR) 40 mg tablet TAKE 1 TABLET DAILY AT BEDTIME. carbidopa-levodopa (SINEMET 25-100) 25-100 mg per tablet TAKE 1 TABLET TWICE DAILY omeprazole (PRILOSEC) 20 mg capsule TAKE 1 CAPSULE EVERY DAY Magnesium 250 mg tab Take 1 tablet by mouth once daily. eyy-[id number]-[id number]- jeff-bor 600 mg calcium- 800 unit-50 mg tab Take 1,200 mg by mouth once daily. polyethylene glycol 3350 (MIRALAX, GLYCOLAX) 17 gram/dose powder FAMILY HISTORY Problem Relation Age of Onset Diabetes Maternal Aunt Diabetes Sister Stroke Sister Social History Tobacco Use Smoking status: Former Years: 39 Types: Cigarettes Quit date: 06/28/2013 Years since quittin.0 Smokeless tobacco: Never Substance Use Topics Alcohol use: No Drug use: No PHYSICAL EXAM BP 130/84 Pulse 84 Resp 16 Wt 88 kg (194 lb) SpO2 98% BMI 32.28 kg/m? General Appearance: well appearing, in no acute distress, alert Pysch: mood and affect broad and appropriate Skin: Skin color, texture, turgor normal for age; Eyes: conjunctiva pink and moist, no icterus, sclera white, non-injected Neck: Thyroid normal size and symmetric without palpable nodules, No bruits, Neck supple, No adenopathy Lymph nodes: No cervical lymphadenopathy and No supraclavicular lymphadenopathy Lungs: Lungs clear to auscultation. No wheezing, rhonchi, rales. Heart: RRR without murmur, gallop, or rubs. No ectopy Health maintenance reviewed with patient: RSV Vaccine(1 - 1-dose 60+ series) Never done Advance Directive Discussion due on 04/06/2023 Depression Assessment due on 04/06/2023 Mammogram Screening due on 07/11/2023 DTaP,Tdap,Td Vaccine(1 - Tdap) due on 07/03/2023 Hepatitis C Screening due on 07/03/2023 Shingrix Vaccine(2 of 3) due on 07/03/2023 Colorectal Cancer Screening due on 02/03/2024 Diabetes Screening due on 06/25/2026 Lipid Screening due on 06/25/2028 Bone Density Screening Completed Influenza Vaccine Completed Covid-19 Vaccine Completed Pneumococcal Vaccine: 65+ Completed DATA REVIEWED: Most recent labs ASSESSMENT/PLAN: 1. Mixed hyperlipidemia - ICD9: 272.2, ICD10: E78.2 (primary diagnosis) - Controlled - Continue current medications - Counseled on healthy diet and regular exercise - Discussed need for and benefit of weight loss. BMI 32.28 kg/(m2) 2. Restless legs syndrome (RLS) - ICD9: 333.94, ICD10: G25.81 Controlled with current treatment 3. Gastroesophageal reflux disease without esophagitis - ICD9: 530.81, ICD10: K21.9 - controlled at this time. Patient has not recently tried to wean off. Is willing to take PPI every other day for a few weeks and if tolerated, try every third day - Discussed lifestyle modifications including losing weight, limiting caffeine, no meals three hours before sleep, and head of bed elevation 4. Encounter for screening mammogram for breast cancer - ICD9: V76.12, ICD10: Z12.31 - MARISSA SCREENING 5. Prediabetes - ICD9: 790.29, ICD10: R73.03 - stable and controlled/asymptomati c Prescription instructions reviewed with patient as applicable. (more content not included)... Normal [facility] CBC panel Auto (Bld)on 06-25 Erythrocyte distribution width (RBC) [Ratio] 12.8 % Normal 11.5-15.0 [facility] Comment on above: Order Comment: Ghislaine patel Type: BLOOD SPECIMEN Ordering Facility: [facility] Address: [address] [place] [address] Performed By: #### 2 4323-8, 51777-7 #### [facility] CLIA [id number] [address] [place] [address] [place] Hematocrit (Bld) [Volume fraction] 45.1 % Normal 36.0-46.0 [facility] Comment on above: Order Comment: Ghislaine patel Type: BLOOD SPECIMEN Ordering Facility: [facility] Address: [address] [place] [address] Performed By: #### 2 4323-8, 63577-6 #### [facility] CLIA [id number] [address] [place] [address] [place] Hemoglobin (Bld) [Mass/Vol] 14.7 g/dL Normal 11.5-15.5 [facility] Comment on above: Order Comment: Ghislaine patel Type: BLOOD SPECIMEN Ordering Facility: [facility] Address: [address] [place] [address] Performed By: #### 2 4323-8, 71241-8 #### [facility] CLIA [id number] [address] [place] [address] [place] MCH (RBC) [Entitic mass] 29.8 pg Normal 26.0-34.0 [facility] Comment on above: Order Comment: Speci men Type: BLOOD SPECIMEN Ordering Facility: [facility] Address: [address] [place] [address] Performed By: #### 2 4323-8, 11585-4 #### [facility] CLIA [id number] [address] [place] [address] [place] MCHC (RBC) [Mass/Vol] 32.6 g/dL Normal 30.5-36.0 [facility] Comment on above: Order Comment: Speci men Type: BLOOD SPECIMEN Ordering Facility: [facility] Address: [address] [place] [address] Performed By: #### 2 4323-8, 90193-9 #### [facility] CLIA [id number] [address] [place] [address] [place] MCV (RBC) [Entitic vol] 91.5 fL Normal 80.0-100.0 [facility] Comment on above: Order Comment: Speci men Type: BLOOD SPECIMEN Ordering Facility: [facility] Address: [address] [place] [address] Performed By: #### 2 4323-8, 92272-7 #### [facility] CLIA [id number] [address] [place] [address] [place] Nucleated RBC (Bld) [#/Vol] 10*3/uL Normal <0.01 [facility] Comment on above: Order Comment: Speci men Type: BLOOD SPECIMEN Ordering Facility: [facility] Address: [address] [place] [address] Performed By: #### 2 4323-8, 45975-4 #### [facility] CLIA [id number] [address] [place] [address] [place] Platelet mean volume (Bld) [Entitic vol] 11.0 fL Normal 9.0-12.7 [facility] Comment on above: Order Comment: Speci men Type: BLOOD SPECIMEN Ordering Facility: [facility] Address: [address] [place] [address] Performed By: #### 2 4323-8, 12360-4 #### [facility] CLIA [id number] [address] [place], [place] [id number] [place] Platelets (Bld) [#/Vol] 214 10*3/uL Normal 150-400 [facility] Comment on above: Order Comment: Speci men Type: BLOOD SPECIMEN Ordering Facility: [facility] Address: [address] [place] [address] Performed By: #### 2 4323-8, 59251-9 #### [facility] CLIA [id number] [address] [place] [address] [place] RBC (Bld) [#/Vol] 4.93 10*6/uL Normal 3.90-5.20 [facility] Comment on above: Order Comment: Speci men Type: BLOOD SPECIMEN Ordering Facility: [facility] Address: [address] [place] [address] Performed By: #### 2 4323-8, 58687-8 #### [facility] CLIA [id number] [address] [place] [address] [place] WBC (Bld) [#/Vol] 4.66 10*3/uL Normal 3.70-11.00 [facility] Comment on above: Order Comment: Speci men Type: BLOOD SPECIMEN Ordering Facility: [facility] Address: [address] [place] [address] Performed By: #### 2 4323-8, 86225-1 #### [facility] CLIA [id number] [address] [place], [place] [id number] [place] Comprehensive metabolic 2000 panelon 06-26-2023 Albumin [Mass/Vol] 4.3 g/dL Normal 3.9-4.9 [facility] Comment on above: Order Comment: Speci men Type: BLOOD SPECIMEN Ordering Facility: [facility] Address: [address] [id number] Performed By: #### 2 4323-8, 80337-4 #### [facility] CLIA [id number] [address] [place], [place] [id number] [place] ALP [Catalytic activity/Vol] 70 U/L Normal 34-123 [facility] Comment on above: Order Comment: Speci men Type: BLOOD SPECIMEN Ordering Facility: [facility] Address: [address] [id number] Performed By: #### 2 4323-8, 51000-6 #### [facility] CLIA [id number] [address] [place] [address] [place] ALT [Catalytic activity/Vol] 17 U/L Normal 7-38 [facility] Comment on above: Order Comment: Speci men Type: BLOOD SPECIMEN Ordering Facility: [facility] Address: [address] [id number] Performed By: #### 2 4323-8, 86767-1 #### [facility] CLIA [id number] [address] [place], [place] [address] [place] Anion gap [Moles/Vol] 11 mmol/L Normal 9-18 [facility] Comment on above: Order Comment: Speci men Type: BLOOD SPECIMEN Ordering Facility: [facility] Address: [address] [phone] Performed By: #### 2 4323-8, 18229-3 #### [facility] CLIA [id number] [address] [place], [place] [id number] [place] AST [Catalytic activity/Vol] 21 U/L Normal 13-35 [facility] Comment on above: Order Comment: Speci men Type: BLOOD SPECIMEN Ordering Facility: [facility] Address: [address] [id number] Performed By: #### 2 4323-8, 61708-1 #### [facility] CLIA [id number] [address] [place] [address] [place] Bilirubin [Mass/Vol] 0.6 mg/dL Normal 0.2-1.3 [facility] Comment on above: Order Comment: Speci men Type: BLOOD SPECIMEN Ordering Facility: [facility] Address: [address] [place] [address] Performed By: #### 2 4323-8, 95760-0 #### [facility] CLIA [id number] [address] [place] [address] [place] Calcium [Mass/Vol] 9.3 mg/dL Normal 8.5-10.2 [facility] Comment on above: Order Comment: Speci men Type: BLOOD SPECIMEN Ordering Facility: [facility] Address: [address] [place] [address] Performed By: #### 2 4323-8, 39343-0 #### [facility] CLIA [id number] [address] [place] [address] [place] Chloride [Moles/Vol] 105 mmol/L Normal 97-105 [facility] Comment on above: Order Comment: Speci men Type: BLOOD SPECIMEN Ordering Facility: [facility] Address: [address] [place] [address] Performed By: #### 2 4323-8, 31671-7 #### [facility] CLIA [id number] [address] [place] [address] [place] CO2 [Moles/Vol] 25 mmol/L Normal 22-30 [facility] Comment on above: Order Comment: Speci men Type: BLOOD SPECIMEN Ordering Facility: [facility] Address: [address] [place] [address] Performed By: #### 2 4323-8, 85768-7 #### [facility] CLIA [id number] [address] [place] [address] [place] Creatinine [Mass/Vol] 0.78 mg/dL Normal 0.58-0.96 [facility] Comment on above: Order Comment: Ghislaine patel Type: BLOOD SPECIMEN Ordering Facility: [facility] Address: [address] [place] [address] Performed By: #### 2 4323-8, 59317-1 #### [facility] CLIA [id number] [address] [place] [address] [place] Creatinine and Glomerular filtration rate.predicted panel (S/P/Bld) 80 mL/min/1.73m??? Normal >=60 [facility] Comment on above: Order Comment: Ghislaine patel Type: BLOOD SPECIMEN Ordering Facility: [facility] Address: [address] [place] [address] Result Comment: Kayleigh mated Glomerular Filtration Rate (eGFR) is calculated using the 2020 CKD-EPI creatinine equation. This equation utilizes serum creatinine, sex, and age as parameters. The creatinine assay has traceable calibration to isotope dilution-mass spectrometry. Refer to KDIGO guidelines for clinical interpretation. In patients with unstable renal function, e.g. those with acute kidney injury, the eGFR may not accurately reflect actual GFR. Performed By: #### 2 4323-8, 74397-2 #### [facility] CLIA [id number] [address] [place] [address] [place] Glucose [Mass/Vol] 110 mg/dL High 74-99 [facility] Comment on above: Order Comment: Ghislaine patel Type: BLOOD SPECIMEN Ordering Facility: [facility] Address: [address] [place] [address] Result Comment: The [place] Diabetes Association (ADA) provides guidance for cutoff values for fasting glucose and random glucose. The ADA defines fasting as no caloric intake for at least 8 hours. Fasting plasma glucose results between 100 to 125 mg/dL indicate increased risk for diabetes (prediabetes). Fasting plasma glucose results greater than or equal to 126 mg/dL meet the criteria for diagnosis of diabetes. In the absence of unequivocal hyperglycemia, results should be confirmed by repeat testing. In a patient with classic symptoms of hyperglycemia or hyperglycemic crisis, random plasma glucose results greater than or equal to 200 mg/dL meet the criteria for diagnosis of diabetes. Reference: Standards of Medical Care in Diabetes 2016, [place] [employer] Association. Diabetes Care. 2016.39(Suppl 1). Performed By: #### 2 4323-8, 26592-9 #### [facility] CLIA [id number] [address] [place] [address] [place] Potassium [Moles/Vol] 4.3 mmol/L Normal 3.7-5.1 [facility] Comment on above: Order Comment: Speci men Type: BLOOD SPECIMEN Ordering Facility: [facility] Address: [address] [place] [address] Performed By: #### 2 4323-8, 18347-7 #### [facility] CLIA [id number] [address] [place] [address] [place] Protein [Mass/Vol] 7.0 g/dL Normal 6.3-8.0 [facility] Comment on above: Order Comment: Speci men Type: BLOOD SPECIMEN Ordering Facility: [facility] Address: [address] [place] [address] Performed By: #### 2 4323-8, 94813-2 #### [facility] CLIA [id number] [address] [place] [address] [place] Sodium [Moles/Vol] 141 mmol/L Normal 136-144 [facility] Comment on above: Order Comment: Speci men Type: BLOOD SPECIMEN Ordering Facility: [facility] Address: [address] [id number] Performed By: #### 2 4323-8, 16577-4 #### [facility] CLIA [id number] [address] [place] [address] [place] Urea nitrogen [Mass/Vol] 9 mg/dL Normal 7-21 [facility] Comment on above: Order Comment: Speci men Type: BLOOD SPECIMEN Ordering Facility: [facility] Address: [address] [place], [place] [address] Performed By: #### 2 4323-8, 06386-8 #### [facility] CLIA [id number] [address] [place] [address] [place] HbA1c (Bld)on 06-26-2023 Average glucose Estimated from glycated hemoglobin (Bld) [Mass/Vol] 120 mg/dL Normal [facility] Comment on above: Order Comment: Ghislaine patel Type: BLOOD SPECIMEN Ordering Facility: [facility] Address: [address] [place] [address] Result Comment: eAG: (Estimated average glucose) is a calculated value from HgbA1c and is cordage sales representative of the average blood glucose level in the last 2-3 month period. Performed By: #### 2 4323-8, 57238-8 #### [facility] CLIA [id number] [address] [place] [address] [place] HbA1c (Bld) [Mass fraction] 5.8 % High 4.3-5.6 [facility] Comment on above: Order Comment: Ghislaine patel Type: BLOOD SPECIMEN Ordering Facility: [facility] Address: [address] [place] [address] Result Comment: [place] Diabetes Association guidelines indicate that patients with HgbA1c in the range 5.7-6.4% are at increased risk for development of diabetes, and intervention by lifestyle modification may be beneficial. HgbA1c greater or equal to 6.5% is considered diagnostic of diabetes. Performed By: #### 2 4323-8, 28365-4 #### [facility] CLIA [id number] [address] [place] [address] [place] Lipid 1996 panelon Cholesterol [Mass/Vol] 164 mg/dL Normal <200 [facility] Comment on above: Order Comment: Ghislaine patel Type: BLOOD SPECIMEN Ordering Facility: [facility] Address: [address] [place] [address] Result Comment: <200 mg/dL, Desirable 200-239 mg/dL, Borderline high >239 mg/dL, High Performed By: #### 2 4323-8, 23317-3 #### [facility] CLIA [id number] [address] [place] Cholesterol in HDL [Mass/Vol] 69 mg/dL Normal >39 [facility] Comment on above: Order Comment: Ghislaine jorge Type: BLOOD SPECIMEN Ordering Facility: [facility] Address: [address] [place] [address] Result Comment: 40-5 9 mg/dL, Acceptable >59 mg/dL, High: Negative risk factor for coronary heart disease <40 mg/dL, Low: Positive risk factor for coronary heart disease Performed By: #### 2 4323-8, 93231-1 #### [facility] CLIA [id number] [address] [place] [address] [place] [facility] Cholesterol in LDL [Mass/Vol] 76 mg/dL Normal <100 [facility] Comment on above: Order Comment: Ghislaine patel Type: BLOOD SPECIMEN Ordering Facility: [facility] Address: [address] [place] [address] Result Comment: <100 mg/dL, Optimal 100-129 mg/dL, Near optimal/above optimal 130-159 mg/dL, Borderline high 160-189 mg/dL, High >189 mg/dL, Very high Secondary prevention optimal LDL Cholesterol levels are recommended to be < 70 mg/dL Performed By: #### 2 4323-8, 51372-6 #### [facility] CLIA [id number] [address] [place] [address] [place] Cholesterol in LDL/Cholesterol in HDL [Mass ratio] 1.10 {ratio} Normal <2.54 [facility] Comment on above: Order Comment: Ibisjessica patel Type: BLOOD SPECIMEN Ordering Facility: [facility] Address: [address] [place] [address] Result Comment: Refe rence: 1. National Cholesterol Education Program ATP III Guideline At-A-Glance Quick Desk Reference: National Heart, Lung, and Blood [place]. National Institutes of Health. 2001: NIH Publication No. 01-3305. 2. An International Atherosclerosis Society position paper: global recommendations for the management of dyslipidemia: executive summary, Atherosclerosis. 2014: 232(2):410-413. Performed By: #### 2 4323-8, 68234-9 #### [facility] CLIA [id number] [address] [place] [address] [place] Cholesterol in VLDL [Mass/Vol] 19 mg/dL Normal <30 [facility] Comment on above: Order Comment: Ghislaine patel Type: BLOOD SPECIMEN Ordering Facility: [facility] Address: [address] [place] [address] Performed By: #### 2 4323-8, 92416-1 #### [facility] CLIA [id number] [address] [place] [address] [place] Cholesterol non HDL [Mass/Vol] 95 mg/dL Normal <130 [facility] Comment on above: Order Comment: Ghislaine patel Type: BLOOD SPECIMEN Ordering Facility: [facility] Address: [address] [place] [address] Result Comment: <130 mg/dL, Optimal 130-159 mg/dL, Near optimal/above optimal 160-189 mg/dL, Borderline high 190-219 mg/dL, High >219 mg/dL, Very high Secondary prevention optimal non HDL Cholesterol levels are recommended to be <100 mg/dL Performed By: #### 2 4323-8, 68876-4 #### [facility] CLIA [id number] [address] [place] [address] [place] Cholesterol.total/C holesterol in HDL [Mass ratio] 2.38 {ratio} Normal <5.10 [facility] Comment on above: Order Comment: Ghislaine patel Type: BLOOD SPECIMEN Ordering Facility: [facility] Address: [address] [place] [address] Performed By: #### 2 4323-8, 70062-2 #### [facility] CLIA [id number] [address] [place] [address] [place] FASTING TIME 12 hrs Normal [facility] Comment on above: Order Comment: Speci men Type: BLOOD SPECIMEN Ordering Facility: [facility] Address: [address] [place] [address] Performed By: #### 2 4323-8, 26047-9 #### [facility] CLIA [id number] [address] [place] [address] [place] Triglyceride [Mass/Vol] 96 mg/dL Normal <150 [facility] Comment on above: Order Comment: Speci men Type: BLOOD SPECIMEN Ordering Facility: [facility] Address: [address] [place] [address] Result Comment: <150 mg/dL, Normal 150-199 mg/dL, Borderline high 200-499 mg/dL, High >499 mg/dL, Very high Performed By: #### 2 4323-8, 43227-7 #### [facility] CLIA [id number] [address] [place] [address] [place] MARISSA SCREENINGon 07-10-2022 [facility] HEMOGLOBIN A1C (POC)on 07-02 HbA1c (Bld) [Mass fraction] 5.6 % 4.2 - 5.6 % [facility] MARISSA SCREENINGon 07-05-2021 [facility] .GFRon 01-31-2020 GFR 77 ml/min/1.73sqm Normal [facility] ([place]) Comment on above: Result Comment: GFR Population mean for , Non- Americans Ages 20-29 = 116 mL/min/1.73 sq.m. Ages 30-39 = 107 mL/min/1.73 sq.m. Ages 40-49 = 99 mL/min/1.73 sq.m. Ages 50-59 = 93 mL/min/1.73 sq.m. Ages 60-69 = 85 mL/min/1.73 sq.m. Ages 70+ = 75 mL/min/1.73 sq.m. Chronic Kidney Disease: Less than 60 mL/min/1.73 square meters End Stage Renal Disease: Less than 15 mL/min/1.73 square meters Performed By: #### T SH, LIPID, CMP, GFR #### [address] [address] GFR Non- 64 ml/min/1.73sqm Normal [facility] ([place]) Comment on above: Result Comment: GFR Population mean for , Non- Americans Ages 20-29 = 116 mL/min/1.73 sq.m. Ages 30-39 = 107 mL/min/1.73 sq.m. Ages 40-49 = 99 mL/min/1.73 sq.m. Ages 50-59 = 93 mL/min/1.73 sq.m. Ages 60-69 = 85 mL/min/1.73 sq.m. Ages 70+ = 75 mL/min/1.73 sq.m. Chronic Kidney Disease: Less than 60 mL/min/1.73 square meters End Stage Renal Disease: Less than 15 mL/min/1.73 square meters Performed By: #### T SH, LIPID, CMP, GFR #### [address] [address] CMPon 01-31-2020 Albumin [Mass/Vol] 4.1 G/dL Normal 3.4-4.8 [facility] ([place]) Comment on above: Performed By: #### T SH, LIPID, CMP, GFR #### [address] [address] Albumin/Globulin [Mass ratio] 1.4 {ratio} Normal 1.1-2.5 [facility] ([place]) Comment on above: Performed By: #### T SH, LIPID, CMP, GFR #### [address] [address] ALP [Catalytic activity/Vol] 54 U/L Normal 40-135 [facility] ([place]) Comment on above: Performed By: #### T SH, LIPID, CMP, GFR #### [address] [address] ALT [Catalytic activity/Vol] 17 U/L Normal 14-59 [facility] ([place]) Comment on above: Performed By: #### T SH, LIPID, CMP, GFR #### [address] [address] AST [Catalytic activity/Vol] 27 U/L Normal 10-40 [facility] ([place]) Comment on above: Performed By: #### T SH, LIPID, CMP, GFR #### [address] [address] Bili Total 0.7 mg/dL Normal 0.2-1.0 [facility] ([place]) Comment on above: Result Comment: Use of this assay is not recommended for patients undergoing treatment with eltrombopag due to the potential for falsely elevated results. Performed By: #### T SH, LIPID, CMP, GFR #### [address] [address] Calcium [Mass/Vol] 8.9 mg/dL Normal 8.4-10.2 [facility] ([place]) Comment on above: Performed By: #### T SH, LIPID, CMP, GFR #### [place] [id number] Chloride [Moles/Vol] 108 mmol/L High 98-107 [facility] ([place]) Comment on above: Performed By: #### T SH, LIPID, CMP, GFR #### [address] [address] CO2 [Moles/Vol] 29 mmol/L Normal 23-31 [facility] ([place]) Comment on above: Performed By: #### T SH, LIPID, CMP, GFR #### [address] [address] Creatinine [Mass/Vol] 0.88 mg/dL Normal 0.55-1.02 [facility] ([place]) Comment on above: Performed By: #### T SH, LIPID, CMP, GFR #### [address] [address] Electrolyte Balance 8.0 mEq/L Normal [facility] ([place]) Comment on above: Performed By: #### T SH, LIPID, CMP, GFR #### [address] [address] Globulin (S) [Mass/Vol] 3.0 G/dL Normal [facility] ([place]) Comment on above: Performed By: #### T SH, LIPID, CMP, GFR #### [address] [address] Glucose [Mass/Vol] 101 mg/dL Normal 83-110 [facility] ([place]) Comment on above: Performed By: #### T SH, LIPID, CMP, GFR #### [address] [address] Potassium [Moles/Vol] 4.8 mmol/L Normal 3.5-5.1 [facility] ([place]) Comment on above: Performed By: #### T SH, LIPID, CMP, GFR #### [address] [address] Protein [Mass/Vol] 7.1 G/dL Normal 6.4-8.2 [facility] ([place]) Comment on above: Performed By: #### T SH, LIPID, CMP, GFR #### [address] [address] Sodium [Moles/Vol] 145 mmol/L Normal 136-145 [facility] ([place]) Comment on above: Performed By: #### T SH, LIPID, CMP, GFR #### [address] [address] Urea nitrogen [Mass/Vol] 11 mg/dL Normal 7-18 [facility] ([place]) Comment on above: Performed By: #### T SH, LIPID, CMP, GFR #### [address] [address] Urea nitrogen/Creatinine [Mass ratio] 12 ratio Normal 7-27 [facility] ([place]) Comment on above: Performed By: #### T SH, LIPID, CMP, GFR #### [address] [address] LIPIDon 01-31-2020 Cholesterol [Mass/Vol] 179 mg/dL Normal 0-200 [facility] ([place]) Comment on above: Result Comment: Chol esterol Reference Interval: Less than 200 Desirable 200-239 Borderline high risk 240 and above High risk Performed By: #### T SH, LIPID, CMP, GFR #### [address] [address] Cholesterol in HDL [Mass/Vol] 67 mg/dL High 40-60 [facility] ([place]) Comment on above: Performed By: #### T SH, LIPID, CMP, GFR #### [address] [address] Cholesterol in LDL [Mass/Vol] 91 mg/dL Normal 0-130 [facility] ([place]) Comment on above: Performed By: #### T SH, LIPID, CMP, GFR #### [address] [address] Triglyceride [Mass/Vol] 105 mg/dL Normal 0-150 [facility] ([place]) Comment on above: Result Comment: Trig lyceride Reference Interval: Less than 150 Normal 150-199 Borderline high risk 200-499 High risk 500 or higher Very high risk Performed By: #### T SH, LIPID, CMP, GFR #### [address] [address] TSHon 01-31-2020 TSH Qn 1.76 mcIU/mL Normal 0.36-3.74 [facility] ([place]) Comment on above: Performed By: #### T SH, LIPID, CMP, GFR #### [address] [address] Final Surgical Pathology Rep [facility] 04-05-2019 Final Surgical Pathology Report . Pathology Reports Accession: Collected Date/Time: Received Date/Time: Pathologist: [id number] 04/04/2019 09:21 EST 04/04/2019 14:24 EST BRITTA DELGADO MD Final Surgical Pathology Report DIAGNOSIS: A) COLON, SPLENIC FLEXURE, POLYPECTOMY -- TUBULAR ADENOMA. B) ILEOCECAL VALVE, POLYPECTOMY -- POLYPOID COLONIC MUCOSAL FRAGMENT. C) DISTAL SIGMOID COLON, POLYPECTOMY -- HYPERPLASTIC POLYP. COMMENT: [facility] Aliza# [id number] CLINICAL INFORMATION: Procedure: COLONOSCOPY WITH POLYPECTOMIES AND BIOPSY Preoperative diagnosis: POSITIVE COLOGUARD Postoperative diagnosis: SAME SPECIMEN: A SPLENIC FLEXURE POLYPS B BIOPSY ILEOCECAL VALVE POLYP C BIOPSY OF DISTAL SIGMOID POLYP GROSS DESCRIPTION: A. Received in formalin labeled splenic flexure polyps are several gaviria glistening soft tissues ranging from 0.2 to 0.5 cm. TS -1 B. Received in formalin labeled ileocecal valve polyp are 2 gaviria glistening soft tissues, 0.4 and 0.5 cm. TS -1 C. Received in formalin labeled distal sigmoid polyp biopsy are several gaviria glistening soft tissues ranging from 0.2 to 0.3 cm. TS - 1 Dictated by Aruna BUTLER ([facility]) MICROSCOPIC DESCRIPTION: A,B&C) Slides reviewed. Electronically Signed by Pathology Report verified by [facility] Electronically signed by BRITTA DELGADO Sign out Date: 04/05/2019 12:52 Performing Lab: [facility], [address] [place] [address] ([place]) Comment on above: Performed By: #### S PFR #### [place] [address] Vital Signs Date Time Vital Sign Value Performing Clinician Kirk cai 01-04-2024 07:56-0400 Body mass index (BMI) [Ratio] 32.12 kg/m2 SLEEP TECH.POULTRY HATCHERY SUPERVISOR Work Phone: [facility] 01-04-2024 07:56-0400 Body weight 87.54 kg SLEEP TECH.POULTRY HATCHERY SUPERVISOR Work Phone: [facility] 01-04-2024 07:56-0400 Diastolic blood pressure 70 mm[Hg] SLEEP TECH.POULTRY HATCHERY SUPERVISOR Work Phone: [facility] 01-04-2024 07:56-0400 Heart rate 70 /min Cassandra Older SLEEP TECH.POULTRY HATCHERY SUPERVISOR Work Phone: [facility] 01-04-2024 07:56-0400 Respiratory rate 16 /min Cassandra Older SLEEP TECH.POULTRY HATCHERY SUPERVISOR Work Phone: [facility] 01-04-2024 07:56-0400 SaO2% (BldA) [Mass fraction] 98 % Cassandra Older SLEEP TECH.POULTRY HATCHERY SUPERVISOR Work Phone: [facility] 01-04-2024 07:56-0400 Systolic blood pressure 132 mm[Hg] Cassandra Older SLEEP TECH.POULTRY HATCHERY SUPERVISOR Work Phone: [facility] 11-27-2023 07:19-0400 Body mass index (BMI) [Ratio] 31.92 kg/m2 Christian Alcazar MD Work Phone: [facility] 11-27-2023 07:19-0400 Body temperature 97.5 [degF] Christian Alcazar MD Work Phone: [facility] 11-27-2023 07:19-0400 Body weight 87 kg Christian Alcazar MD Work Phone: [facility] 11-27-2023 07:19-0400 Diastolic blood pressure 78 mm[Hg] Christian Alcazar MD Work Phone: [facility] 11-27-2023 07:19-0400 Heart rate 70 /min Christian Alcazar MD Work Phone: [facility] 11-27-2023 07:19-0400 Respiratory rate 18 /min Christian Alcazar MD Work Phone: [facility] 11-27-2023 07:19-0400 SaO2% (BldA) [Mass fraction] 98 % Christian Alcazar MD Work Phone: [facility] 11-27-2023 07:19-0400 Systolic blood pressure 130 mm[Hg] Christian Alcazar MD Work Phone: [facility] 07-01-2023 08:14-0400 Body weight 88 kg Cassandra Older SLEEP TECH.POULTRY HATCHERY SUPERVISOR Work Phone: [facility] 07-01-2023 08:14-0400 Diastolic blood pressure 84 mm[Hg] Cassandra Older SLEEP TECH.POULTRY HATCHERY SUPERVISOR Work Phone: [facility] 07-01-2023 08:14-0400 Heart rate 84 /min Cassandra Older SLEEP TECH.POULTRY HATCHERY SUPERVISOR Work Phone: [facility] 07-01-2023 08:14-0400 Respiratory rate 16 /min Cassandra Older SLEEP TECH.POULTRY HATCHERY SUPERVISOR Work Phone: [facility] 07-01-2023 08:14-0400 SaO2% (BldA) [Mass fraction] 98 % Cassandra Older SLEEP TECH.POULTRY HATCHERY SUPERVISOR Work Phone: [facility] 07-01-2023 08:14-0400 Systolic blood pressure 130 mm[Hg] Cassandra Older SLEEP TECH.POULTRY HATCHERY SUPERVISOR Work Phone: [facility] 07-02-2022 10:48-0400 Body temperature 97.7 [degF] Cassandra Older SLEEP TECH.POULTRY HATCHERY SUPERVISOR Work Phone: [facility] 07-02-2022 10:48-0400 Body weight 89.36 kg Cassandra Older SLEEP TECH.POULTRY HATCHERY SUPERVISOR Work Phone: [facility] 07-02-2022 10:48-0400 Diastolic blood pressure 76 mm[Hg] Cassandra Older SLEEP TECH.POULTRY HATCHERY SUPERVISOR Work Phone: [facility] 07-02-2022 10:48-0400 Heart rate 75 /min Cassandra Older SLEEP TECH.POULTRY HATCHERY SUPERVISOR Work Phone: [facility] 07-02-2022 10:48-0400 Respiratory rate 16 /min Cassandra Older SLEEP TECH.POULTRY HATCHERY SUPERVISOR Work Phone: [facility] 07-02-2022 10:48-0400 SaO2% (BldA) [Mass fraction] 98 % Cassandra Older SLEEP TECH.POULTRY HATCHERY SUPERVISOR Work Phone: [facility] 07-02-2022 10:48-0400 Systolic blood pressure 128 mm[Hg] Cassandra Older SLEEP TECH.POULTRY HATCHERY SUPERVISOR Work Phone: [facility] 12-23-2021 08:50-0400 Body height 165.1 cm Yael Cain MD Work Phone: [facility] 12-23-2021 08:50-0400 Body temperature 98.1 [degF] Yael Cain MD Work Phone: [facility] 12-23-2021 08:50-0400 Body weight 89.81 kg Yael Cain MD Work Phone: [facility] 12-23-2021 08:50-0400 Diastolic blood pressure 64 mm[Hg] Yael Cain MD Work Phone: [facility] 12-23-2021 08:50-0400 Heart rate 71 /min Yael Cain MD Work Phone: [facility] 12-23-2021 08:50-0400 Respiratory rate 12 /min Yael Cain MD Work Phone: [facility] 12-23-2021 08:50-0400 SaO2% (BldA) [Mass fraction] 97 % Yael Cain MD Work Phone: [facility] 12-23-2021 08:50-0400 Systolic blood pressure 124 mm[Hg] Yael Cain MD Work Phone: [facility] Encounters Encounter Date Encounter Type Care Provider Facility Start: 01-04-2024 End: 01-04-2024 Telephone encounter Cassandra Calles APRN.POULTRY HATCHERY SUPERVISOR Work Phone: [facility] Comment on above: Orders Start: 01-04-2024 End: 01-04-2024 ambulatory CASSANDRA CALLES Facility:[facility] Start: 01-04-2024 End: 01-04-2024 Patient encounter procedure Cassandra Calles APRN.POULTRY HATCHERY SUPERVISOR Work Phone: [facility] Comment on above: Medicare annual well ness visit, subsequent (Primary Dx); Falling episodes; Screening for depression; Encounter for screening examination for other mental health and behavioral disorders Start: 11-27-2023 End: 11-27-2023 ambulatory [facility] Facility:[facility] Start: 11-27-2023 End: 11-27-2023 Patient encounter procedure Christian Alcazar MD Work Phone: [facility] Comment on above: URI, acute (Primary Dx) Start: 11-24-2023 End: 11-25-2023 Refill Yael Cain MD Work Phone: [facility] Comment on above: Refill Request Start: 09-13-2023 End: 09-13-2023 ambulatory [facility] Facility:[facility] Start: 09-13-2023 End: 09-13-2023 Patient encounter procedure Niraj Dia SLEEP TECH.POULTRY HATCHERY SUPERVISOR Work Phone: [facility] Comment on above: Procedure not cassie d out (Primary Dx) Start: 07-16-2023 Documentation procedure Mammog caren Coordinator [facility] Start: 07-16-2023 Letter encounter Mammography Coordinator [facility] Department Start: 07-16-2023 End: 07-16-2023 ambulatory [facility] Facility:[facility] Start: 07-16-2023 End: 07-16-2023 Subsequent hospital visit by physician Screen Mammo [facility] Comment on above: Encounter for screen ing mammogram for breast cancer [Z12.31] Start: 07-01-2023 End: 07-01-2023 ambulatory [facility] Facility:[facility] Start: 07-01-2023 End: 07-01-2023 Patient encounter procedure Cassandra Calles SLEEP TECH.POULTRY HATCHERY SUPERVISOR Work Phone: [facility] [place] Comment on above: Mixed hyperlipidemia (Primary Dx); Restless legs syndrome (RLS); Gastroesophageal reflux disease without esophagitis; Encounter for screening mammogram for breast cancer; Prediabetes Start: 06-26-2023 End: 06-26-2023 [facility] Facility:[facility] Start: 06-26-2023 Patient encounter procedure CASSANDRA OLDER [facility] Start: 11-16-2022 Refill Cassandra Calles APRN .POULTRY HATCHERY SUPERVISOR Work Phone: [facility] Comment on above: Refill Request Start: 07-10-2022 Documentation procedure Mammog caren Coordinator [facility] Start: 07-10-2022 Letter encounter Mammography Coordinator [facility] Department Start: 07-10-2022 End: 07-10-2022 Subsequent hospital visit by physician Screen Mammo [facility] M[facility]ogram Comment on above: Encounter for screen ing mammogram for breast cancer [Z12.31] Start: 07-07-2022 Telephone encounter Yael noonan MD Work Phone: [facility] [place] Comment on above: Patient Update (coug h/) Start: 07-02-2022 End: 07-02-2022 Patient encounter procedure Cassandra Calles SLEEP TECH.POULTRY HATCHERY SUPERVISOR Work Phone: [facility] [place] Comment on above: Medicare annual well ness visit, subsequent (Primary Dx); Prediabetes; Obesity (BMI 30.0-34.9); Mixed hyperlipidemia; Restless legs syndrome (RLS); Acute non-recurrent sinusitis, unspecified location; Encounter for screening mammogram for breast cancer Start: 05-07-2022 Telephone encounter Yael noonan MD Work Phone: [facility] [place] Comment on above: Appointment Start: 12-23-2021 End: 12-23-2021 Patient encounter procedure Yael Cain MD Work Phone: [facility] Comment on above: Mixed hyperlipidemia (Primary Dx); Need for influenza vaccination; Obesity (BMI 30.0-34.9); Gastroesophageal reflux disease without esophagitis Start: 11-20-2021 Refill April Gonzalez APRN.ADDISON Work Phone: [facility] Comment on above: Refill Request Start: 09-23-2021 Refill April Gonzalez APRN.POULTRY HATCHERY SUPERVISOR Work Phone: [facility] [place] Comment on above: Refill Request Start: 07-05-2021 Documentation procedure Mammog caren Coordinator [facility] Start: 07-05-2021 Letter encounter Mammography Coordinator [facility] Department Start: 07-05-2021 End: 07-05-2021 Subsequent hospital visit by physician Screen Mammo [facility] Comment on above: Breast cancer screen ing by mammogram [Z12.31] Procedures Date Procedure Procedure Detail Performing Clinician Start: 01-04-2024 Adult depression scr eening assessment Cassandra Calles APRN.ADDISON Work Phone: Start: 07-16-2023 Screening mammograph y bi 2-view breast inc cad Cassandra Calles APRN.CNP Work Phone: Start: 06-26-2023 Lipid 1996 panel - S silverio or Plasma Cassandra Calles APRN.CNP Work Phone: Start: 07-10-2022 End: 07-10-2022 Mammography Cassandra Calles APRN.CNP Work Phone: Start: 07-02-2022 Hemoglobin A1c/Hemoglobin.total in Blood Cassandra Calles APRN.POULTRY HATCHERY SUPERVISOR Work Phone: Start: 06-06-2022 Lipid 1996 panel - S silverio or Plasma Screen [facility] Start: 12-23-2021 INFLUENZA SEASONAL QUADRIVALENT HIGH DOSE AGE 65+ Yael Cain MD Work Phone: Start: 12-23-2021 Adult depression scr eening assessment Yael Cain MD Work Phone: Start: 07-05-2021 End: 07-05-2021 Screening mammography bi 2-view breast inc cad Yael Cain MD Work Phone: Start: 02-02-2019 Colonoscopy Screen [facility] r Start: 11-02-2017 Adult depression scr eening assessment Screen [facility] Plan of Treatment Date Care Activity Detail Author Start: 09-12-2033 Urine microalbumin profile DTaP,Tdap,Td Vaccine (2 - Td or Tdap) [facility] Start: 06-25-2028 Lipid panel Lipid Screening [facility] Start: 06-07-2027 Lipid 1996 panel - Serum or Plasma Lipid Screening [facility] Start: 06-07-2027 LIPID SCREEN LIPID SCREEN [facility] Start: 06-25-2026 [facility] Start: 04-15-2026 LIPID SCREEN LIPID SCREEN [facility] Start: 07-02-2025 DIABETES SCREEN DIABETES SCREEN [facility] Start: 07-02-2025 Diabetes Screening [facility] Start: 01-03-2025 Anxiety Screening Anxiety Screening [facility] Start: 01-03-2025 Covid-19 Vaccine ( season) Covid-19 Vaccine () [facility] Comment on above: Postponed from 12/05 (Declined at this time) Start: 01-03-2025 Depression Screening Depression Scre ening [facility] Start: 01-03-2025 Hepatitis C screening Hepatitis C Sc [facility] Comment on above: Postponed from 03/02 (Declined at this time) Start: 07-15-2024 Screening for malign ant neoplasm of breast Mammogram Screening [facility] Start: 07-04-2024 End: 10-03-2024 CBC panel - Blood by Automated count COMPLETE BLOOD COUNT Lab Routine Mixed hyperlipidemia Prediabetes Expected: 07/04/2024 (Approximate), Expires: 10/03/2024 [facility] Comment on above: Expected: 07/04/2024 (Approximate), Expires: 10/03/2024 Start: 07-04-2024 End: 10-03-2024 Comprehensive metabolic 2000 panel - Serum or Plasma COMPREHENSIVE METABOLIC PANEL Lab Routine Mixed hyperlipidemia Prediabetes Expected: 07/04/2024 (Approximate), Expires: 10/03/2024 [facility] Comment on above: Expected: 07/04/2024 (Approximate), Expires: 10/03/2024 Start: 07-04-2024 End: 10-03-2024 Hemoglobin A1c in Blood HEMOGLOBIN A1C Lab Routine Mixed hyperlipidemia Prediabetes Expected: 07/04/2024 (Approximate), Expires: 10/03/2024 [facility] Comment on above: Expected: 07/04/2024 (Approximate), Expires: 10/03/2024 Start: 07-04-2024 End: 10-03-2024 Lipid 1996 panel - Serum or Plasma LIPID PANEL BASIC Lab Routine Mixed hyperlipidemia Prediabetes Expected: 07/04/2024 (Approximate), Expires: 10/03/[address] [facility] Work Phone: Comment on above: Expected: 07/04/2024 (Approximate), Expires: 10/03/2024 Start: 07-01-2024 End: 07-01-2024 Patient encounter procedure 07/01/2024 8:00 AM EDT Office Visit [facility] [address] [place], [place] [id number] Cassandra Calles APRN.POULTRY HATCHERY SUPERVISOR [address] [place] [address] 6 month follow up [facility] Comment on above: 6 month follow up Start: 06-30-2024 RSV Vaccine (1 - 1-d ose 60+ series) RSV Vaccine (1 - 1-dose 60+ series) [facility] Comment on above: Postponed from 03/02 (Declined at this time) Start: 06-30-2024 RSV Vaccine (1 - 1-d ose 75+ series) RSV Vaccine (1 - 1-dose 75+ series) [facility] Comment on above: Postponed from 03/02 (Declined at this time) Start: 04-15-2024 DIABETES SCREEN DIABETES SCREEN [facility] Start: 02-03-2024 Colonoscopy COLONOSCOPY [facility] Start: 02-03-2024 COLORECTAL CANCER SCREENING COLORECTAL CANCER SCREENING [facility] Start: 02-03-2024 Screening for malign ant neoplasm of colon [facility] Start: 01-04-2024 End: 01-04-2024 Patient encounter procedure 01/04/2024 8:00 AM EDT Office Visit [facility] [address] [place], [place] [id number] Cassandra Calles APRN.POULTRY HATCHERY SUPERVISOR [address] [place] [address] Medicare Wellness [facility] [place] Comment on above: Medicare Wellness Start: 01-03-2024 Covid-19 Vaccine ( season) Covid-19 Vaccine ( season) [facility] Comment on above: Postponed from 12/05 (Declined at this time) Start: 12-06-2023 Influenza vaccination Influenza Vacc ine (#1) [facility] Start: 07-11-2023 Mammography [facility] Start: 07-11-2023 Screening for malign ant neoplasm of breast Mammogram Screening [facility] Start: 07-03-2023 HEPATITIS C SCREENING HEPATITIS C [facility] Comment on above: Postponed from 03/02 (Declined at this time) Start: 07-03-2023 Hepatitis C screening Hepatitis C [facility] Comment on above: Postponed from 03/02 (Declined at this time) Start: 07-03-2023 SHINGRIX VACCINE (1 of 2) SHINGRIX VACCINE (1 of 2) [facility] Comment on above: Postponed from 03/02 (Declined at this time) Start: 07-03-2023 Shingrix Vaccine (2 of 3) Shingrix Vaccine (2 of 3) [facility] Comment on above: Postponed from 12/14 (Declined at this time) Start: 07-03-2023 Urine microalbumin profile [facility] Comment on above: Postponed from 03/02 (Declined at this time) Start: 06-05-2023 Covid-19 Vaccine () Covid-19 Vaccine () [facility] Start: 04-06-2023 Behavioral Health Screening Behavioral Health Screening [facility] Start: 12-23-2022 Adult depression screening assessment DEPRESSION SCREENING [facility] Start: 12-05-2022 Influenza vaccination INFLUENZA (#1) [facility] Start: 07-31-2022 COVID-19 VACCINE (6 - Pfizer series) COVID-19 VACCINE (6 - Pfizer series) [facility] Start: 07-05-2022 Mammography MAMMOGRAM [facility] Start: 06-22-2022 End: 08-22-2022 Comprehensive metabolic 2000 panel - Serum or Plasma COMP METABOLIC PANEL Lab Routine Mixed hyperlipidemia Expected: 06/22/2022, Expires: 08/22/[address] [facility] Work Phone: Comment on above: Expected: 06/22/2022 , Expires: 08/22/2022 Start: 06-22-2022 End: 08-22-2022 Lipid 1996 panel - Serum or Plasma LIPID PANEL BASIC Lab Routine Mixed hyperlipidemia Expected: 06/22/2022, Expires: 08/22/[address] [facility] Work Phone: Comment on above: Expected: 06/22/2022 , Expires: 08/22/2022 Start: 06-22-2022 End: 08-22-2022 Thyrotropin [Units/volume] in Serum or Plasma TSH BLD Lab Routine Obesity (BMI 30.0-34.9) Expected: 06/22/2022, Expires: 08/22/[address] [facility] Work Phone: Comment on above: Expected: 06/22/2022 , Expires: 08/22/2022 Start: 06-17-2022 End: 08-17-2022 Comprehensive metabolic 2000 panel - Serum or Plasma COMP METABOLIC PANEL Lab Routine Mixed hyperlipidemia Obesity (BMI 30.0-34.9) Expected: 06/17/2022 (Approximate), Expires: 08/17/[address] [facility] Work Phone: Comment on above: Expected: 06/17/2022 (Approximate), Expires: 08/17/2022 Start: 06-17-2022 End: 08-17-2022 Lipid 1996 panel - Serum or Plasma LIPID PANEL BASIC Lab Routine Mixed hyperlipidemia Obesity (BMI 30.0-34.9) Expected: 06/17/2022 (Approximate), Expires: 08/17/[address] [facility] Work Phone: Comment on above: Expected: 06/17/2022 (Approximate), Expires: 08/17/2022 Start: 06-17-2022 End: 08-17-2022 Thyrotropin [Units/volume] in Serum or Plasma TSH BLD Lab Routine Obesity (BMI 30.0-34.9) Expected: 06/17/2022 (Approximate), Expires: 08/17/[address] [facility] Work Phone: Comment on above: Expected: 06/17/2022 (Approximate), Expires: 08/17/2022 Start: 04-06-2022 ADVANCE DIRECTIVE DISCUSSION ADVANCE DIRECTIVE DISCUSSION [facility] Start: 04-06-2022 DEPRESSION ASSESSMENT DEPRESSION ASS ESSMENT [facility] Start: 02-23-2022 Screening for malign ant neoplasm of colon Cologuard (FIT-DNA) [facility] Start: 12-05-2021 Influenza vaccination INFLUENZA (#1) [facility] Start: 05-04-2021 COVID-19 VACCINE (4 - Booster for Pfizer series) COVID-19 VACCINE (4 - Booster for Pfizer series) [facility] Start: 11-02-2018 Adult depression screening assessment DEPRESSION SCREENING [facility] Start: 12-14-2012 Shingrix Vaccine (2 of 3) Shingrix Vaccine (2 of 3) [facility] Start: 2009 RSV Vaccine (1 - 1-d ose 60+ series) RSV Vaccine (1 - 1-dose 60+ series) [facility] Start: 1999 SHINGRIX VACCINE (1 of 2) SHINGRIX VACCINE (1 of 2) [facility] Start: 1994 COLOGUARD (FIT-DNA) COLOGUARD (FIT-D NA) [facility] Start: [address] COLONOGRAPHY [facility] Start: 1994 FECAL OCCULT BLOOD FECAL OCCULT BLOO D [facility] Start: 1994 Screening for malign ant neoplasm of colon [facility] Start: 1994 SIGMOIDOSCOPY SIGMOIDOSCOPY Lizzette hogue [facility] Start: 1968 Urine microalbumin profile [facility] Start: 1967 Anxiety Screening Anxiety Screening [facility] Start: 1967 Depression Screening Depression Scre ening [facility] Start: 1967 HEPATITIS C SCREENING HEPATITIS C [facility] Start: 1967 Hepatitis C screening Hepatitis C [facility] End: 08-01-2023 MARISSA SCREENING MARISSA SCREENING Radiology Routine Encounter for screening mammogram for breast cancer 1 Occurrences starting 07/02/2022 until 08/01/[address] [facility] Work Phone: Comment on above: 1 Occurrences starti ng 07/02/2022 until 08/01/2023 End: 07-30-2024 MG Breast Screening MARISSA SCREENING Radiology Routine Encounter for screening mammogram for breast cancer 1 Occurrences starting 07/01/2023 until 07/30/[address] [facility] Work Phone: Comment on above: 1 Occurrences starti ng 07/01/2023 until 07/30/2024 SARS-CoV-2 (COVID-19 ) RNA [Presence] in Respiratory specimen by EVONNE with probe detection COVID NAAT, UPPER RESPIRATORY, ROUTINE Microbiology Routine URI, acute Ordered: 11/27/[address] [facility] Work Phone: Comment on above: Ordered: 11/27/2023 [facility] Immunizations Immunization Date Immunization Notes Care Provider Fa cili 12-19-2022 influenza virus vacc ine, unspecified formulation Yael Cain MD Work Phone: [facility] 12-23-2021 influenza, high-dose , quadrivalent vaccine (FLUZONE HIGH DOSE QUADRIVALENT) Yael Cain MD Work Phone: [facility] Work Phone: 06-28-2020 COVID-19 vaccine, ag e 12+ yr (PFIZER-BIONTECH - PURPLE TOP) Screen [facility] 06-07-2020 COVID-19 vaccine, ag e 12+ yr (PFIZER-BIONTECH - PURPLE TOP) Screen [facility] 05-05-2018 pneumococcal polysaccharide vaccine, 23 valent Screen [facility] Work Phone: 01-15-2017 influenza, high dose seasonal, preservative-free Screen [facility] Work Phone: 07-01-2016 pneumococcal conjuga te vaccine, 13 valent Screen [facility] Work Phone: Payers Date Payer Category Payer Medicare HU[employer]NA MEDICARE HU[employer]NA MEDICARE PPO [id number] 2020-Present [phone] [address] [address] [place] [address] PPO [id number] 2020 Medicare [id number] 2020 Private Health Insurance [id number] Social History Date Type Detail Facility Start: 06-29-2015 End: 11-27-2023 Tobacco smoking status NHIS Ex-smoker [facility] Work Phone: Start: 06-28-1973 End: 06-28-2013 History of tobacco use Current smoker [facility] Work Phone: Start: 06-28-1973 End: 06-28-2013 History of tobacco use Cigarette Smoker [facility] Work Phone: Start: 06-29-2015 End: 11-27-2023 Tobacco use and exposure Smokeless tobacco non-user [facility] Work Phone: Start: 06-20-2021 End: 01-04-2024 Alcohol intake Current non-drinker of alcohol (finding) [facility] Start: 1950 Sex Assigned At Not on file [facility] Start: 12-13-2021 End: 12-23-2021 Exposure to SARS-CoV-2 (event) Not sure [facility] Work Phone: Start: 06-25-2022 History SDOH Alcohol Frequency 1 [facility] Start: 06-25-2022 History SDOH Alcohol Std Drinks 0 [facility] Start: 06-25-2022 History SDOH Social Connections Phone 5 [facility] Start: 06-25-2022 History SDOH Social Connections Get Together 2 [facility] Start: 06-25-2022 History SDOH Social Connections Buddhist 3 [facility] Start: 06-25-2022 History SDOH Social Connections Meetings 98 [facility] Start: 06-25-2022 History SDOH Physica l Activity MPS 6 [facility] Start: 06-25-2022 End: 01-02-2023 History of Social function [facility] Start: 06-25-2022 End: 01-02-2023 Social connection and isolation panel [facility] Do you belong to any clubs or organizations such as latter day groups, unions, fraternal or athletic groups, or school groups? No [facility] How often do you att end meetings of the clubs or organizations you belong to? Patient refused [facility] Are you now , , , , never or living with a partner? [facility] How often to you hav e a drink containing alcohol? Never [facility] Do you feel stress - tense, restless, nervous, or anxious, or unable to sleep at night because your mind is troubled all the time - these days [OSQ] Not at all [facility] (I/We) worried wheth er (my/our) food would run out before (I/we) got money to buy more. Never true [facility] How hard is it for y ou to pay for the very basics like food, housing, medical care, and heating Not very hard [facility] Do you feel stress - tense, restless, nervous, or anxious, or unable to sleep at night because your mind is troubled all the time - these days [OSQ] Only a little [facility] Clinical Notes 07-05-2021 to 01-04-2024 Telephone Encounter - Cassandra Calles APRN.POULTRY HATCHERY SUPERVISOR - 01/04/2024 8:25 AM EDTTelephone Encounter - Cassandra Calles APRN.CNP - 01/04/2024 8:25 AM EDTPatient InstructionsCassandra Calles APRN.CNP - 01/04/2024 8:07 AM EDT Note Date & Type Note [facility] 01-04-2024 Telephone encounter Note Orders placed for next visit. Cassandra Calles APRN.CNP [facility] 01-04-2024 Miscellaneous Notes Orders placed for next visit. Cassandra Calles APRN.CNP documented in this encounter [facility] 01-04-2024 Cassandra Oh APRN.CNP - 01/04/2024 8:14 AM EDT Screening schedule The following prevention plan is recommended: Depression Screening Never done Anxiety Screening Never done Colorectal Cancer Screening due on 02/03/2024 WHAT YOU CAN DO TO PREVENT FALLS Many falls can be prevented. By making some changes, you can lower your chances of falling. Four things YOU can do to prevent falls for you* and your caregiver 1. Begin a regular exercise program Exercise is one of the most important ways to lower your chances of falling. It makes you stronger and helps you feel better. Exercises that improve balance and coordination (like Leonard Chi) are the most helpful. Lack of exercise leads to weakness and increases your chances of falling. Ask your doctor or health care provider about the best type of exercise program for you. 2. Have your health care provider review your medicines Have your doctor or pharmacist review all the medicines you take, even [id number]-[id number] medicines. As you get older, the way medicines work in your body can change. Some medicines, or combinations of medicines, can make you sleepy or dizzy and can cause you to fall. 3. Have your vision checked Have your eyes checked by an eye doctor at least once a year. You may be wearing the wrong glasses or have a condition like glaucoma or cataracts that limits your vision. Poor vision can increase your chances of falling. 4. Make your home safer About half of all falls happen at home. To make your home safer: Remove things you can trip over (like papers, books, clothes, and shoes) from stairs and places where you walk. Remove small throw rugs or use double-sided tape to keep the rugs from slipping. Keep items you use often in cabinets you can reach easily without using a step stool. Have grab bars put in next to your toilet and in the tub or shower. Use non-slip mats in the bathtub and on shower floors. Improve the lighting in your home. As you get older, you need brighter lights to see well. Hang light-weight curtains or shades to reduce glare. Have handrails and lights put in on all staircases. Wear shoes both inside and outside the house. Avoid going barefoot or wearing slippers. For more information, contact: Centers for Disease Control and Prevention www.cdc.gov/injury * This information may not apply if you have certain medical conditions. WHAT YOU CAN DO TO PREVENT FALLS Many falls can be prevented. By making some changes, you can lower your chances of falling. Four things YOU can do to prevent falls for you* and your caregiver 1. Begin a regular exercise program Exercise is one of the most important ways to lower your chances of falling. It makes you stronger and helps you feel better. Exercises that improve balance and coordination (like Leonard Chi) are the most helpful. Lack of exercise leads to weakness and increases your chances of falling. Ask your doctor or health care provider about the best type of exercise program for you. 2. Have your health care provider review your medicines Have your doctor or pharmacist review all the medicines you take, even ezgz-coe-nwlczhf medicines. As you get older, the way medicines work in your body can change. Some medicines, or combinations of medicines, can make you sleepy or dizzy and can cause you to fall. 3. Have your vision checked Have your eyes checked by an eye doctor at least once a year. You may be wearing the wrong glasses or have a condition like glaucoma or cataracts that limits your vision. Poor vision can increase your chances of falling. 4. Make your home safer About half of all falls happen at home. To make your home safer: Remove things you can trip over (like papers, books, clothes, and shoes) from stairs and places where you walk. Remove small throw rugs or use double-sided tape to keep the rugs from slipping. Keep items you use often in cabinets you can reach easily without using a step stool. Have grab bars put in next to your toilet and in the tub or shower. Use non-slip mats in the bathtub and on shower floors. Improve the lighting in your home. As you get older, you need brighter lights to see well. Hang light-weight curtains or shades to reduce glare. Have handrails and lights put in on all staircases. Wear shoes both inside and outside the house. Avoid going barefoot or wearing slippers. For more information, contact: Centers for Disease Control and Prevention www.cdc.gov/injury * This information may not apply if you have certain medical conditions. documented in this encounter [facility] 01-04-2024 Note HNO ID: [id number] Author: CASSANDRA CALLES APRN.ADDISON Service: ? Author Type: Nurse Practitioner Type: Progress Notes Filed: 01/04/2024 08:25 Note Text: Thursday is a 73 year old female here for a Medicare wellness visit. Medicare Health Risk Assessment General Health Very good Exercise: Minutes/Day 90 min Exercise: Days/Week 7 days Alcohol: Daily Use Never Alcohol: Drinks/Day Patient does not drink Alcohol: 6 or more drinks Never Feel off balance No Concerns: Teeth/Dentures No Concerns: Sexual function No Troubled by feelings None of the above Frequency: Eating healthy diet Several days ADLs requiring help None of the above Safety precautions in home/vehicle Yes Smoke, vape, chews tobacco No Difficulty hearing No Difficulty seeing No Current Providers Specialists: I have reviewed specialist-related care of the patient in the medical record. Orthopedic: Dr. Lucio - Fell 6 months ago tripping on a walking trail breaking her left arm. Fracture did not require surgery and healed well with a cast and sling. Has not fallen since. Denies any weakness, further falls, or unsteady gait. Optometry: Dr. Ramos, has been seen in the last 4 months. Medical/Family history review Reviewed and updated problem list, medical/surgical/family/social history, medications, and allergies. Opioid use review Opioid Medications (last 90 days) No data to display Anxiety/Depression screening PHQ-9 Score: 2 (Minimal Depression) RODDY-2 Score: 0 (Lower risk for anxiety) Recommendation: no further intervention at this time Cognitive screening Mini Cog Score: 5 Cognitive screening reviewed and No further action needed (score 3-5). Functional Observation Was the patient's Timed Up AND Go test unsteady or >= 12 seconds? No Advance Care Planning Surrogate decision maker and/or advance care plan documented Measurements BP 132/70 Pulse 70 Resp 16 Wt 87.5 kg (193 lb) SpO2 98% BMI 32.12 kg/m? Vision Screening: Follows with optometry/ophthalmology Assessment/Plan Medicare annual wellness visit, subsequent (Z) - Counseled on healthy diet and regular exercise - Fall avoidance information provided - Personalized prevention plan provided - Discussed need for and benefit of weight loss. BMI 32.12 kg/(m2) ASSESSMENT/PLAN: 1. Medicare annual wellness visit, subsequent - ICD9: V70.0, ICD10: Z00.00 (primary diagnosis) - Counseled on healthy diet and regular exercise - Discussed need and benefit for weight loss. BMI 32.12 kg/(m2) - Follow up for annual exam in one year 2. Falling episodes - ICD9: 781.99, E888.9, ICD10: R29.6 1 episode of mechanical fall. Discussed fall prevention. - FALLS RISK EDUCATION 3. Screening for depression - ICD9: V79.0, ICD10: Z13.31 negative - DEPRESSION SCREENING 4. Encounter for screening examination for other mental health and behavioral disorders - ICD9: V79.8, ICD10: Z13.39 negative - ANXIETY SCREENING Cassandra Calles APRN.POULTRY HATCHERY SUPERVISOR [facility] 01-04-2024 History of Presen t illness Narrative Images from the original note were not included. Thursday is a 73 year old female here for a Medicare wellness visit. Medicare Health Risk Assessment General Health Very good Exercise: Minutes/Day 90 min Exercise: Days/Week 7 days Alcohol: Daily Use Never Alcohol: Drinks/Day Patient does not drink Alcohol: 6 or more drinks Never Feel off balance No Concerns: Teeth/Dentures No Concerns: Sexual function No Troubled by feelings None of the above Frequency: Eating healthy diet Several days ADLs requiring help None of the above Safety precautions in home/vehicle Yes Smoke, vape, chews tobacco No Difficulty hearing No Difficulty seeing No Current Providers Specialists: I have reviewed specialist-related care of the patient in the medical record. Orthopedic: Dr. Lucio - Fell 6 months ago tripping on a walking trail breaking her left arm. Fracture did not require surgery and healed well with a cast and sling. Has not fallen since. Denies any weakness, further falls, or unsteady gait. Optometry: Dr. Ramos, has been seen in the last 4 months. Medical/Family history review Reviewed and updated problem list, medical/surgical/family/social history, medications, and allergies. Opioid use review Opioid Medications (last 90 days) No data to display Anxiety/Depression screening PHQ-9 Score: 2 (Minimal Depression) RODDY-2 Score: 0 (Lower risk for anxiety) Recommendation: no further intervention at this time Cognitive screening Mini Cog Score: 5 Cognitive screening reviewed and No further action needed (score 3-5). Functional Observation Was the patient's Timed Up & Go test unsteady or >= 12 seconds? No Advance Care Planning Surrogate decision maker and/or advance care plan documented Measurements BP 132/70 Pulse 70 Resp 16 Wt 87.5 kg (193 lb) SpO2 98% BMI 32.12 kg/m Vision Screening: Follows with optometry/ophthalmology Assessment/Plan Medicare annual wellness visit, subsequent (Z00.00) - Counseled on healthy diet and regular exercise - Fall avoidance information provided - Personalized prevention plan provided - Discussed need for and benefit of weight loss. BMI 32.12 kg/(m^2) ASSESSMENT/PLAN: 1. Medicare annual wellness visit, subsequent - ICD9: V70.0, ICD10: Z00.00 (primary diagnosis) - Counseled on healthy diet and regular exercise - Discussed need and benefit for weight loss. BMI 32.12 kg/(m^2) - Follow up for annual exam in one year 2. Falling episodes - ICD9: 781.99, E888.9, ICD10: R29.6 1 episode of mechanical fall. Discussed fall prevention. - FALLS RISK EDUCATION 3. Screening for depression - ICD9: V79.0, ICD10: Z13.31 negative - DEPRESSION SCREENING 4. Encounter for screening examination for other mental health and behavioral disorders - ICD9: V79.8, ICD10: Z13.39 negative - ANXIETY SCREENING Cassandra Calles APRN.ADDISON documented in this encounter [facility] 11-27-2023 Note Addended by: CHRISTIAN LUNA on: 11/27/2023 08:55 AM Modules accepted: Orders [facility] 11-27-2023 Miscellaneous Notes Addended by: CHRISTIAN ALCAZAR on: 11/27/2023 08:55 AM Modules accepted: Orders documented in this encounter [facility] 11-27-2023 Note HNO ID: [id number] Author: CHRISTIAN ALCAZAR MD Service: ? Author Type: Physician Type: Progress Notes Filed: 11/27/2023 08:55 Note Text: Patient presents with: Sinus Problem: Nasal congestion,fatigue, cough, fever,ears itch, Left worse x 5 days HPI: Feeling sick starting 5 days ago. She is improving and was able to perform her usual walking yesterday. Her sinuses are still full. Positive symptoms: Cough, ears itch, Sinus pressure, Nasal Congestion, initial day fever, Fatigue, Headache, Diarrhea, Negative symptoms: Shortness of breath, Sore throat, Vomiting, Rhinorrhea, OTC: Lozenges, Tylenol, loratidine MEDICATIONS: Current Outpatient Medications Medication Sig omeprazole (PRILOSEC) 20 mg capsule Take 1 capsule by mouth once daily. simvastatin (ZOCOR) 40 mg tablet Take 1 tablet by mouth daily at bedtime. carbidopa-levodopa (SINEMET 25-100) 25-100 mg per tablet Take 1 tablet by mouth two times a day. Magnesium 250 mg tab Take 1 tablet by mouth once daily. [id number] 600 mg calcium- 800 unit-50 mg tab Take 1,200 mg by mouth once daily. polyethylene glycol 3350 (MIRALAX, GLYCOLAX) 17 gram/dose powder No current facility-administered medications for this visit. ALLERGIES: ALLERGIES Allergen Reactions Celecoxib Rash, Hives, Itching Also known as Celebrex Meloxicam Mental Status Change patient did not feel right when on this med Prednisone Rash, Swelling VITALS: BP 130/78 Pulse 70 Temp 36.4 ?C (97.5 ?F) Resp 18 Wt 87 kg (191 lb 12.8 oz) SpO2 98% BMI 31.92 kg/m? PHYSICAL EXAM: GEN: mildly ill appearing HEENT: PERRL, EOMI, conjunctiva clear Ears: canals clear. TMs without erythema, bulge, or effusion Sinuses: non-tender frontal sinus, non-tender maxillary sinuses Throat: moist mucous membranes, no erythema, no exudate Neck: supple, no thyromegaly, no lymphadenopathy HEART: regular rate and rhythm, no murmurs LUNGS: clear to auscultation, no wheezes or crackles, no increased WOB ASSESSMENT/PLAN: 1. URI, acute - ICD9: 465.9, ICD10: J06.9 - viral URI, suspect COVID-19. - Discussed supportive care treatment with rest, cold medicine, and analgesia. - She is beyond the therapeutic window for antiviral medication. Returned after discharge for COVID test - ordered. - Red flags to seek further treatment include chest pain, shortness of breath, and lethargy; in the ER if severe. Christian Alcazar MD [facility] 11-27-2023 History of Presen t illness Narrative Patient presents with: Sinus Problem: Nasal congestion,fatigue, cough, fever,ears itch, Left worse x 5 days HPI: Feeling sick starting 5 days ago. She is improving and was able to perform her usual walking yesterday. Her sinuses are still full. Positive symptoms: Cough, ears itch, Sinus pressure, Nasal Congestion, initial day fever, Fatigue, Headache, Diarrhea, Negative symptoms: Shortness of breath, Sore throat, Vomiting, Rhinorrhea, OTC: Lozenges, Tylenol, loratidine MEDICATIONS: Current Outpatient Medications Medication Sig omeprazole (PRILOSEC) 20 mg capsule Take 1 capsule by mouth once daily. simvastatin (ZOCOR) 40 mg tablet Take 1 tablet by mouth daily at bedtime. carbidopa-levodopa (SINEMET 25-100) 25-100 mg per tablet Take 1 tablet by mouth two times a day. Magnesium 250 mg tab Take 1 tablet by mouth once daily. [id number] 600 mg calcium- 800 unit-50 mg tab Take 1,200 mg by mouth once daily. polyethylene glycol 3350 (MIRALAX, GLYCOLAX) 17 gram/dose powder No current facility-administered medications for this visit. ALLERGIES: ALLERGIES Allergen Reactions Celecoxib Rash, Hives, Itching Also known as Celebrex Meloxicam Mental Status Change patient did not feel right when on this med Prednisone Rash, Swelling VITALS: BP 130/78 Pulse 70 Temp 36.4 C (97.5 F) Resp 18 Wt 87 kg (191 lb 12.8 oz) SpO2 98% BMI 31.92 kg/m PHYSICAL EXAM: GEN: mildly ill appearing HEENT: PERRL, EOMI, conjunctiva clear Ears: canals clear. TMs without erythema, bulge, or effusion Sinuses: non-tender frontal sinus, non-tender maxillary sinuses Throat: moist mucous membranes, no erythema, no exudate Neck: supple, no thyromegaly, no lymphadenopathy HEART: regular rate and rhythm, no murmurs LUNGS: clear to auscultation, no wheezes or crackles, no increased WOB ASSESSMENT/PLAN: 1. URI, acute - ICD9: 465.9, ICD10: J06.9 - viral URI, suspect COVID-19. - Discussed supportive care treatment with rest, cold medicine, and analgesia. - She is beyond the therapeutic window for antiviral medication. Returned after discharge for COVID test - ordered. - Red flags to seek further treatment include chest pain, shortness of breath, and lethargy; in the ER if severe. Christian Alcazar MD documented in this encounter [facility] [facility] 11-24-2023 Telephone encounter Note Pended.. Brenda Cevallos MA [facility] 11-24-2023 Miscellaneous Notes Pended.. Brenda Cevallos MA Please note: patient also wants refill of Sinemet 25-100. However when I try to add it to the refill request, it is asking for instruction info to be completed. Please review and add to refill request. Prescription Refill Information The patient has been identified by name and date of : Yes Caregiver verified no other encounters exist for this prescription request: Yes Caregiver confirmed with patient/requestor that no other refills are due, in the near future, with this provider at this time: Yes The last office visit in the department: 07/01/23 Does the patient have a future office visit with this provider/department: Yes Requested Prescriptions Pending Prescriptions Disp Refills omeprazole (PRILOSEC) 20 mg capsule 90 capsule 3 Sig: Take 1 capsule by mouth once daily. simvastatin (ZOCOR) 40 mg tablet 90 tablet 3 Sig: Take 1 tablet by mouth daily at bedtime. Nida Garcia November 24, 2023 12:34 PM documented in this encounter [facility] 11-24-2023 Telephone encounter Note Please note: patient also wants refill of Sinemet 25-100. However when I try to add it to the refill request, it is asking for instruction info to be completed. Please review and add to refill request. [facility] 11-24-2023 Telephone encounter Note Prescription Refill Information The patient has been identified by name and date of : Yes Caregiver verified no other encounters exist for this prescription request: Yes Caregiver confirmed with patient/requestor that no other refills are due, in the near future, with this provider at this time: Yes The last office visit in the department: 07/01/23 Does the patient have a future office visit with this provider/department: Yes Requested Prescriptions Pending Prescriptions Disp Refills omeprazole (PRILOSEC) 20 mg capsule 90 capsule 3 Sig: Take 1 capsule by mouth once daily. simvastatin (ZOCOR) 40 mg tablet 90 tablet 3 Sig: Take 1 tablet by mouth daily at bedtime. Nida Garcia November 24, 2023 12:34 PM [facility] 09-13-2023 Note HNO ID: [id number] Author: NIRAJ DIA APRN.CNP Service: ? Author Type: Nurse Practitioner Type: Progress Notes Filed: 09/13/2023 12:22 Note Text: Nontoxic-appearing female presents urgent care chief complaint right knee wrist elbow pain. Patient states was at the park today when she fell striking elbow and wrist knee on the ground. Patient states having a hard time straightening her elbow. Wrist is starting to swell become more painful. With patient's presenting symptoms I recommended patient be seen in urgent care or ER with x-ray capabilities today verbalized understanding agrees with plan of care. Niraj Dia APRN.CNP [facility] 09-13-2023 History of Presen t illness Narrative Nontoxic-appearing female presents urgent care chief complaint right knee wrist elbow pain. Patient states was at the park today when she fell striking elbow and wrist knee on the ground. Patient states having a hard time straightening her elbow. Wrist is starting to swell become more painful. With patient's presenting symptoms I recommended patient be seen in urgent care or ER with x-ray capabilities today verbalized understanding agrees with plan of care. Niraj Dia APRN.CNP documented in this encounter [facility] 07-16-2023 Miscellaneous Notes July 16, 2023 PID: [id number] Thursday [address] [place] [address] Dear Ms. Thursday, We are pleased to inform you that the results of your recent breast imaging exam on 07/16/2023 are normal. Early detection of cancer is very important. We also understand recommendations regarding breast cancer screening are controversial. Please discuss with your primary care provider which strategy is best for you and whether a mammogram is right for you. Your imaging studies and report will be kept on file at [facility] as part of your permanent medical record and are available for your continuing care. Thank you for allowing us to help in meeting your health care needs. Sincerely, Dr. Mims Interpreting Radiologist [facility] (Normal over 40) documented in this encounter [facility] 07-16-2023 History of Presen t illness Narrative Radiology Service Progress Note PATIENT NAME: Thursday DATE OF SERVICE: July 16, 2023 TIME: 7:30 AM PATIENT IDENTITY VERIFICATION COMPLETED USING TWO (2) IDENTIFIERS: Name and Date of confirmed by patient verbally. FALL SCREENING: Has the patient had 2 falls in the last year or 1 fall with injury or currently using an Ambulatory Assistive Device (Walker, Cane, Wheelchair, Crutches, etc.)? No PATIENT GENDER DATA: Female. status: : No status: NO. PATIENT RELEVANT IMPLANT DATA REVIEWED: Not Applicable PATIENT PRESENTS WITH AN IMPLANTABLE OR ATTACHED MOLASSES AND CARAMEL OPERATOR: No RADIOLOGY DEPARTMENT: Mammography PERIPHERAL IV DATA: Not applicable SIGNED BY: Jeannie Simon July 16, 2023 7:30 AM documented in this encounter [facility] 07-16-2023 Note HNO ID: [id number] Author: KAMALA DICKINSON Mammo Tech Service: ? Author Type: Health Unit Clerk Type: Progress Notes Filed: 07/16/2023 07:30 Note Text: Radiology Service Progress Note PATIENT NAME: Thursday DATE OF SERVICE: July 16, 2023 TIME: 7:30 AM PATIENT IDENTITY VERIFICATION COMPLETED USING TWO (2) IDENTIFIERS: Name and Date of confirmed by patient verbally. FALL SCREENING: Has the patient had 2 falls in the last year or 1 fall with injury or currently using an Ambulatory Assistive Device (Walker, Cane, Wheelchair, Crutches, etc.)? No PATIENT GENDER DATA: Female. status: : No status: NO. PATIENT RELEVANT IMPLANT DATA REVIEWED: Not Applicable PATIENT PRESENTS WITH AN IMPLANTABLE OR ATTACHED MOLASSES AND CARAMEL OPERATOR: No RADIOLOGY DEPARTMENT: Mammography PERIPHERAL IV DATA: Not applicable SIGNED BY: Kamala Dickinson Purplu July 16, 2023 7:30 AM [facility] 07-01-2023 Note HNO ID: [id number] Author: CASSANDRA CALLES APRN.POULTRY HATCHERY SUPERVISOR Service: ? Author Type: Nurse Practitioner Type: Progress Notes Filed: 07/01/2023 08:43 Note Text: CC: Patient presents with: Recheck: 6 month follow up HPI Thursday is a 73 year old female who presents today for routine follow up. HLD: Walking 7 days a week for exercise and maintaining a healthy diet. Denies any chest pain, shortness of breath, or exercise intolerance. RLS: Controlled well with current treatment. GERD: Controlled well with current treatment. Denies heartburn, abdominal pain, nausea, or difficulty swallowing. Prediabetes: Diet controlled. Denies increase in thirst hunger or urination. REVIEW OF SYSTEMS General: no fevers, no chills, no night sweats, no recurrent infections, no change in appetite, no change in energy, and no significant changes in weight Respiratory: no cough, no wheezing, no shortness of breath, no hemoptysis Cardiovascular: no chest pain, no chest pressure, no palpitations, and no swelling GI: No nausea, vomiting, or diarrhea Endocrine: no fatigue, no polyuria, no polyphagia, and no polydipsia Neurologic: No headache, weakness, numbness, dizziness, memory loss, syncope. Psych: PHQ2 is 0 PAST MEDICAL HISTORY Diagnosis Date Protrusion of lumbar intervertebral disc L3-L4 PAST SURGICAL HISTORY Procedure Laterality Date CLOSED TREAT FRACTURE RADIUS AND ULNA;WO MAN 02/23/[address]Rodney Hope HYSTERECTOMY HX 1986 LUMBAR OR CAUDAL EPIDURAL STEROID INJECTION REMOVE CATARACT, INSERT LENS,EX 03/06/2016 ALLERGIES Celecoxib, Meloxicam, and Prednisone MEDICATIONS simvastatin (ZOCOR) 40 mg tablet TAKE 1 TABLET DAILY AT BEDTIME. carbidopa-levodopa (SINEMET 25-100) 25-100 mg per tablet TAKE 1 TABLET TWICE DAILY omeprazole (PRILOSEC) 20 mg capsule TAKE 1 CAPSULE EVERY DAY Magnesium 250 mg tab Take 1 tablet by mouth once daily. [id number] 600 mg calcium- 800 unit-50 mg tab Take 1,200 mg by mouth once daily. polyethylene glycol 3350 (MIRALAX, GLYCOLAX) 17 gram/dose powder FAMILY HISTORY Problem Relation Age of Onset Diabetes Maternal Aunt Diabetes Sister Stroke Sister Social History Tobacco Use Smoking status: Former Years: 39 Types: Cigarettes Quit date: 06/28/2013 Years since quittin.0 Smokeless tobacco: Never Substance Use Topics Alcohol use: No Drug use: No PHYSICAL EXAM BP 130/84 Pulse 84 Resp 16 Wt 88 kg (194 lb) SpO2 98% BMI 32.28 kg/m? General Appearance: well appearing, in no acute distress, alert Pysch: mood and affect broad and appropriate Skin: Skin color, texture, turgor normal for age; Eyes: conjunctiva pink and moist, no icterus, sclera white, non-injected Neck: Thyroid normal size and symmetric without palpable nodules, No bruits, Neck supple, No adenopathy Lymph nodes: No cervical lymphadenopathy and No supraclavicular lymphadenopathy Lungs: Lungs clear to auscultation. No wheezing, rhonchi, rales. Heart: RRR without murmur, gallop, or rubs. No ectopy Health maintenance reviewed with patient: RSV Vaccine(1 - 1-dose 60+ series) Never done Advance Directive Discussion due on 04/06/2023 Depression Assessment due on 04/06/2023 Mammogram Screening due on 07/11/2023 DTaP,Tdap,Td Vaccine(1 - Tdap) due on 07/03/2023 Hepatitis C Screening due on 07/03/2023 Shingrix Vaccine(2 of 3) due on 07/03/2023 Colorectal Cancer Screening due on 02/03/2024 Diabetes Screening due on 06/25/2026 Lipid Screening due on 06/25/2028 Bone Density Screening Completed Influenza Vaccine Completed Covid-19 Vaccine Completed Pneumococcal Vaccine: 65+ Completed DATA REVIEWED: Most recent labs ASSESSMENT/PLAN: 1. Mixed hyperlipidemia - ICD9: 272.2, ICD10: E78.2 (primary diagnosis) - Controlled - Continue current medications - Counseled on healthy diet and regular exercise - Discussed need for and benefit of weight loss. BMI 32.28 kg/(m2) 2. Restless legs syndrome (RLS) - ICD9: 333.94, ICD10: G25.81 Controlled with current treatment 3. Gastroesophageal reflux disease without esophagitis - ICD9: 530.81, ICD10: K21.9 - controlled at this time. Patient has not recently tried to wean off. Is willing to take PPI every other day for a few weeks and if tolerated, try every third day - Discussed lifestyle modifications including losing weight, limiting caffeine, no meals three hours before sleep, and head of bed elevation 4. Encounter for screening mammogram for breast cancer - ICD9: V76.12, ICD10: Z12.31 - MARISSA SCREENING 5. Prediabetes - ICD9: 790.29, ICD10: R73.03 - stable and controlled/asymptomatic Prescription instructions reviewed with patient as applicable. Potential red flag symptoms discussed with the patient. Reviewed appropriate action plan to take if red flag symptoms occur. Patient agreeable to treatment plan. Cassandra Calles APRN.[facility] 07-01-2023 History of Presen t illness Narrative CC: Patient presents with: Recheck: 6 month follow up HPI Thursday is a 73 year old female who presents today for routine follow up. HLD: Walking 7 days a week for exercise and maintaining a healthy diet. Denies any chest pain, shortness of breath, or exercise intolerance. RLS: Controlled well with current treatment. GERD: Controlled well with current treatment. Denies heartburn, abdominal pain, nausea, or difficulty swallowing. Prediabetes: Diet controlled. Denies increase in thirst hunger or urination. REVIEW OF SYSTEMS General: no fevers, no chills, no night sweats, no recurrent infections, no change in appetite, no change in energy, and no significant changes in weight Respiratory: no cough, no wheezing, no shortness of breath, no hemoptysis Cardiovascular: no chest pain, no chest pressure, no palpitations, and no swelling GI: No nausea, vomiting, or diarrhea Endocrine: no fatigue, no polyuria, no polyphagia, and no polydipsia Neurologic: No headache, weakness, numbness, dizziness, memory loss, syncope. Psych: PHQ2 is 0 PAST MEDICAL HISTORY Diagnosis Date Protrusion of lumbar intervertebral disc L3-L4 PAST SURGICAL HISTORY Procedure Laterality Date CLOSED TREAT FRACTURE RADIUS & ULNA;WO MAN 02/23/[address]Rodney Hope HYSTERECTOMY HX 1987 LUMBAR OR CAUDAL EPIDURAL STEROID INJECTION REMOVE CATARACT, INSERT LENS,EX 03/06/2016 ALLERGIES Celecoxib, Meloxicam, and Prednisone MEDICATIONS simvastatin (ZOCOR) 40 mg tablet TAKE 1 TABLET DAILY AT BEDTIME. carbidopa-levodopa (SINEMET 25-100) 25-100 mg per tablet TAKE 1 TABLET TWICE DAILY omeprazole (PRILOSEC) 20 mg capsule TAKE 1 CAPSULE EVERY DAY Magnesium 250 mg tab Take 1 tablet by mouth once daily. [id number] 600 mg calcium- 800 unit-50 mg tab Take 1,200 mg by mouth once daily. polyethylene glycol 3350 (MIRALAX, GLYCOLAX) 17 gram/dose powder FAMILY HISTORY Problem Relation Age of Onset Diabetes Maternal Aunt Diabetes Sister Stroke Sister Social History Tobacco Use Smoking status: Former Years: 39 Types: Cigarettes Quit date: 06/28/2013 Years since quittin.0 Smokeless tobacco: Never Substance Use Topics Alcohol use: No Drug use: No PHYSICAL EXAM BP 130/84 Pulse 84 Resp 16 Wt 88 kg (194 lb) SpO2 98% BMI 32.28 kg/m General Appearance: well appearing, in no acute distress, alert Pysch: mood and affect broad and appropriate Skin: Skin color, texture, turgor normal for age; Eyes: conjunctiva pink and moist, no icterus, sclera white, non-injected Neck: Thyroid normal size and symmetric without palpable nodules, No bruits, Neck supple, No adenopathy Lymph nodes: No cervical lymphadenopathy and No supraclavicular lymphadenopathy Lungs: Lungs clear to auscultation. No wheezing, rhonchi, rales. Heart: RRR without murmur, gallop, or rubs. No ectopy Health maintenance reviewed with patient: RSV Vaccine(1 - 1-dose 60+ series) Never done Advance Directive Discussion due on 04/06/2023 Depression Assessment due on 04/06/2023 Mammogram Screening due on 07/11/2023 DTaP,Tdap,Td Vaccine(1 - Tdap) due on 07/03/2023 Hepatitis C Screening due on 07/03/2023 Shingrix Vaccine(2 of 3) due on 07/03/2023 Colorectal Cancer Screening due on 02/03/2024 Diabetes Screening due on 06/25/2026 Lipid Screening due on 06/25/2028 Bone Density Screening Completed Influenza Vaccine Completed Covid-19 Vaccine Completed Pneumococcal Vaccine: 65+ Completed DATA REVIEWED: Most recent labs ASSESSMENT/PLAN: 1. Mixed hyperlipidemia - ICD9: 272.2, ICD10: E78.2 (primary diagnosis) - Controlled - Continue current medications - Counseled on healthy diet and regular exercise - Discussed need for and benefit of weight loss. BMI 32.28 kg/(m^2) 2. Restless legs syndrome (RLS) - ICD9: 333.94, ICD10: G25.81 Controlled with current treatment 3. Gastroesophageal reflux disease without esophagitis - ICD9: 530.81, ICD10: K21.9 - controlled at this time. Patient has not recently tried to wean off. Is willing to take PPI every other day for a few weeks and if tolerated, try every third day - Discussed lifestyle modifications including losing weight, limiting caffeine, no meals three hours before sleep, and head of bed elevation 4. Encounter for screening mammogram for breast cancer - ICD9: V76.12, ICD10: Z12.31 - MARISSA SCREENING 5. Prediabetes - ICD9: 790.29, ICD10: R73.03 - stable and controlled/asymptomatic Prescription instructions reviewed with patient as applicable. Potential red flag symptoms discussed with the patient. Reviewed appropriate action plan to take if red flag symptoms occur. Patient agreeable to treatment plan. Cassandra Calles APRN.CNP documented in this encounter [facility] 11-18-2022 Miscellaneous Notes Patient has been identified by name and date of : No Patient phones for refill(s): Requested Prescriptions Pending Prescriptions Disp Refills simvastatin (ZOCOR) 40 mg tablet [Pharmacy Med Name: SIMVASTATIN 40 MG Tablet] 90 tablet 3 Sig: TAKE 1 TABLET DAILY AT BEDTIME. carbidopa-levodopa (SINEMET 25-100) 25-100 mg per tablet [Pharmacy Med Name: CARBIDOPA/LEVODOPA 25-100 MG Tablet] 180 tablet 3 Sig: TAKE 1 TABLET TWICE DAILY omeprazole (PRILOSEC) 20 mg capsule [Pharmacy Med Name: OMEPRAZOLE 20 MG Capsule Delayed Release] 90 capsule 3 Sig: TAKE 1 CAPSULE EVERY DAY Date of last office visit in primary care: 07/02/22 Last 2 Encounter Wt Readings: Date: Wt: 09/17/2022 90.3 kg (199 lb) 07/02/2022 89.4 kg (197 lb) Previous labs/tests for medication: Cholesterol: HDL Cholesterol (mg/dL) Date Value 06/06/2022 72 04/15/2021 73 LDL Cholesterol (mg/dL) Date Value 06/06/2022 80 04/15/2021 77 ALT (U/L) Date Value 06/06/2022 15 04/15/2021 12 Non HDL Cholesterol (mg/dL) Date Value 06/06/2022 95 04/15/2021 96 Please advise. Thank you. Bettina Turner LPN documented in this encounter [facility] 07-10-2022 Miscellaneous Notes July 11, 2022 PID: [id number] Thursday [address] [place] [address] Dear Ms. Thursday, We are pleased to inform you that the results of your recent breast imaging exam on 07/10/2022 are normal. Early detection of cancer is very important. We also understand recommendations regarding breast cancer screening are controversial. Please discuss with your primary care provider which strategy is best for you and whether a mammogram is right for you. Your imaging studies and report will be kept on file at [facility] as part of your permanent medical record and are available for your continuing care. Thank you for allowing us to help in meeting your health care needs. Sincerely, Dr. Hope Interpreting Radiologist [facility] (Normal over 40) documented in this encounter [facility] 07-10-2022 History of Presen t illness Narrative Radiology Service Progress Note PATIENT NAME: Thursday DATE OF SERVICE: July 10, 2022 TIME: 7:46 AM PATIENT IDENTITY VERIFICATION COMPLETED USING TWO (2) IDENTIFIERS: Name and Date of confirmed by patient verbally. FALL SCREENING: Has the patient had 2 falls in the last year or 1 fall with injury or currently using an Ambulatory Assistive Device (Walker, Cane, Wheelchair, Crutches, etc.)? No PATIENT GENDER DATA: Female. status: : No status: NO. PATIENT RELEVANT IMPLANT DATA REVIEWED: Not Applicable RADIOLOGY DEPARTMENT: Mammography PERIPHERAL IV DATA: Not applicable SIGNED BY: RT Jackelyn(R) July 10, 2022 7:46 AM documented in this encounter [facility] 07-07-2022 Miscellaneous Notes Patient notified. If symptoms are improving, I am going to send in benzonatate for her cough. Please let patient know if she does not continue to improve or at anytime feels worse, let us know right away so we can add a different antibiotic. Thank you Cassandra Calles APRN.CNP Pt called with an update and she still has the hacking cough but it is not as bad. Please advise. Karie Montoya LPN documented in this encounter [facility] 07-02-2022 Instructions Cassandra Calles APRN.CNP - 07/02/2022 11:33 AM EDT Call next week if no improvement in your sinus issues and I will send in an order for an antibiotic. documented in this encounter [facility] 07-02-2022 History of Presen t illness Narrative Medicare Yearly Visit Medical B eligibilty date 2014 Date of last exam 06/20/21 PAST MEDICAL HISTORY Diagnosis Date Protrusion of lumbar intervertebral disc L3-L4 PAST SURGICAL HISTORY Procedure Laterality Date CLOSED TREAT FRACTURE RADIUS & ULNA;WO MAN 02/23/[address]Rodney Hope HYSTERECTOMY HX 1987 LUMBAR OR CAUDAL EPIDURAL STEROID INJECTION REMOVE CATARACT, INSERT LENS,EX 03/06/2016 ALLERGIES: Celecoxib, Meloxicam, and Prednisone Medications reviewed: Yes FAMILY HISTORY Problem Relation Age of Onset Diabetes Maternal Aunt Diabetes Sister Stroke Sister SOCIAL HISTORY: Social History Tobacco Use Smoking status: Former Years: 40.00 Types: Cigarettes Quit date: 06/28/2013 Years since quittin.0 Smokeless tobacco: Never Substance Use Topics Alcohol use: No Drug use: No Selena works out regularly 5 times per week with aerobics class/tape. She watches her diet for sodium, low fat and low cholesterol most of the time. Has not seen much weight loss with all the activity but has noticed clothese are looser. List of current specialists seen: Optometry: [facility] annual regular exams End of Live Planning discussed including patients advanced directive wishes: Yes I am willing to follow Selena's advanced directives. PHQ-2 / Depression screen She in the past two weeks denies having felt down, depressed, hopeless, or with little interest or pleasure in doing things. PHQ-2 Score: 0 PHQ-9 Score: 0 Functional Ability/Safety Screen 1. Was the patient's timed Up and Go test unsteady or longer than 30 seconds? No 2. Does the patient need help with the phone, transportation, shopping,preparing meals, housework, laundry, medications or managing money? No 3. Does your home have rugs in the hallway, lack of grab bars in the bathroom, lack of handrails on the stairs or have poor lighting? No except no grab bars in the bathroom. Hearing Evaluation: normal PHYSICAL EXAM BP 128/76 Pulse 75 Temp 36.5 C (97.7 F) (Temporal) Resp 16 Wt 89.4 kg (197 lb) SpO2 98% BMI 32.78 kg/m Alert and oriented X 3: YES Body mass index is 32.78 kg/m . CDT normal 3/3 word recall. ASSESSMENT/PLAN: 72 year old female The following prevention plan was discussed during the office visit and provided to the patient: - Counseled on healthy diet and regular exercise - Discussed need for and benefit of weight loss. BMI 32.78 kg/(m^2) - Fall avoidance - Mammogram recommended and ordered - Lipid panel - Diabetes screening - Depression screening - Glaucoma screening Cassandra Calles APRN.CNP CC: Patient presents with: Medicare Wellness Exam: Annual Medicare Wellness HPI Thursday is a 72 year old female who presents today for annual medicare exam. Had a sinus infection in May, was prescribed amoxicillin which fully resolved, but has had a dry cough and post nasal drainage for the past week. Started a few days ago taking flonase and loratadine and unsure if it is helping and still has cough in the morning. Takes both in AM. Denies shortness of breath, fever, chills, change in energy, wheezing, or chest pain. RLS: Uses sinemet which is controlling her symptoms. Has tried multiple medications in the past with this being the only option that helps. HLD and Obesity: Has been eating healthier and increasing her activity level. Has been doing some form of aerobic activity 5 days a week and feeling really good. Only lost a few pounds so far but her clothes are feeling looser. Denies any chest pressure, dyspnea, exercise intolerance, or fatigue. Prediabetes: See above healthy lifestyle changes. Denies any increase in thirst, hunger, or urination. REVIEW OF SYSTEMS General: no fevers, no chills, no night sweats, no recurrent infections, no change in appetite, no change in energy, and no significant changes in weight HEENT: no frequent or significant headaches, no changes in hearing, no visual changes, no nose bleeds Respiratory: no wheezing, no shortness of breath, no hemoptysis Cardiovascular: no chest pain, no chest pressure, no palpitations, and no swelling GI: No nausea, vomiting, or diarrhea : No history of dysuria, frequency or incontinence Musculoskeletal: Negative for joint pain or swelling, back pain or muscle pain Skin: Negative for lesions, rash, and itching Psych: PHQ2 is 0 Hematologic/Lymph: Negative for prolonged bleeding, bruising easily or swollen nodes Endocrine: no fatigue, no cold intolerance, no heat intolerance, no polyuria, no polyphagia, and no polydipsia Neurologic: No headache, weakness, numbness, tingling, dizziness, memory loss, syncope. PAST MEDICAL HISTORY Diagnosis Date Protrusion of lumbar intervertebral disc L3-L4 PAST SURGICAL HISTORY Procedure Laterality Date CLOSED TREAT FRACTURE RADIUS & ULNA;WO MAN 02/23/[address]Rodney Hope HYSTERECTOMY HX 1987 LUMBAR OR CAUDAL EPIDURAL STEROID INJECTION REMOVE CATARACT, INSERT LENS,EX 03/06/2016 ALLERGIES Celecoxib, Meloxicam, and Prednisone MEDICATIONS carbidopa-levodopa (SINEMET 25-100) 25-100 mg per tablet TAKE 1 TABLET TWICE DAILY simvastatin (ZOCOR) 40 mg tablet TAKE 1 TABLET DAILY AT BEDTIME. omeprazole (PRILOSEC) 20 mg capsule TAKE 1 CAPSULE EVERY DAY Magnesium 250 mg tab Take 1 tablet by mouth once daily. [id number] 600 mg calcium- 800 unit-50 mg tab Take 1,200 mg by mouth once daily. pyridoxine, vitamin B6, (VITAMIN B6) 100 mg tablet Take 1 tablet by mouth once daily. polyethylene glycol 3350 (MIRALAX, GLYCOLAX) 17 gram/dose powder Glucosamine 1,000 mg tab Take 1 tablet by mouth once daily. polyethylene glycol 3350 (MIRALAX, GLYCOLAX) 17 gram packet Take 1 Packet by mouth once daily. FAMILY HISTORY Problem Relation Age of Onset Diabetes Maternal Aunt Diabetes Sister Stroke Sister Social History Tobacco Use Smoking status: Former Years: 40.00 Types: Cigarettes Quit date: 06/28/2013 Years since quittin.0 Smokeless tobacco: Never Substance Use Topics Alcohol use: No Drug use: No PHYSICAL EXAM BP 128/76 Pulse 75 Temp 36.5 C (97.7 F) (Temporal) Resp 16 Wt 89.4 kg (197 lb) SpO2 98% BMI 32.78 kg/m General Appearance: well appearing, in no acute distress, alert Pysch: mood and affect broad and appropriate Skin: Skin color, texture, turgor normal for age; Eyes: conjunctiva pink and moist, no icterus, sclera white, non-injected Ears: external ears normal to inspection and palpation, canals clear, Left tympanic membrane normal. , Right tympanic membrane normal Nose/sinus: Nares normal. Septum midline. Mucosa normal. No drainage., No sinus tenderness Neck: Thyroid normal size and symmetric without palpable nodules, Neck supple, No adenopathy Oropharynx: tongue midline and normal, soft palate, uvula, and tonsils normal, palpation of salivary glands negative Lymph nodes: No cervical lymphadenopathy and No supraclavicular lymphadenopathy Lungs: Lungs clear to auscultation. No wheezing, rhonchi, rales. Heart: RRR without murmur, gallop, or rubs. No ectopy Abdomen: Abdomen soft, non-tender. Bowel sounds normal. No masses, organomegaly Extremities: No deformities, edema, skin discoloration, clubbing or cyanosis. Good capillary refill. Neurological: Gait normal. Reflexes normal and symmetric. Sensation grossly intact. Health maintenance reviewed with patient: HEPATITIS C SCREENING Never done ADVANCE DIRECTIVE DISCUSSION due on 04/06/2022 DEPRESSION ASSESSMENT Never done MAMMOGRAM due on 07/05/2022 DTAP,TDAP,TD(1 - Tdap) due on 07/03/2023 SHINGRIX VACCINE(1 of 2) due on 07/03/2023 COLORECTAL CANCER SCREENING due on 02/03/2024 DIABETES SCREEN due on 06/06/2025 LIPID SCREEN due on 06/07/2027 BONE DENSITY Completed INFLUENZA Completed COVID-19 VACCINE Completed PNEUMOCOCCAL: 65+ Completed DATA REVIEWED: Most recent labs ASSESSMENT/PLAN: 1. Medicare annual wellness visit, subsequent - ICD9: V70.0, ICD10: Z00.00 (primary diagnosis) - see medicare wellness note. - Counseled on healthy diet and regular exercise - Calcium intake with supplements or by diet of 1000 mg/day for under 50, 5857-6607 mg/day for 50+ - Discussed need and benefit for weight loss. BMI 32.78 kg/(m^2) - Mammogram ordered - exam recommended once yearly - Depression screening tool completed and reviewed with patient. Based on score and interview, patient is not at risk for depression and recommended no further intervention at this time. - Follow up for annual exam in one year 2. Prediabetes - ICD9: 790.29, ICD10: R73.03 - asymptomatic and well controlled with diet and exercise. - HEMOGLOBIN A1C (POC) 5.6 3. Obesity (BMI 30.0-34.9) - ICD9: 278.00, ICD10: E66.9 Weight decreasing - Behavioral intervention - continue with healthy lifestyle choices including diet and exercise. 4. Mixed hyperlipidemia - ICD9: 272.2, ICD10: E78.2 - good control - Continue current medication. - Encouraged following a low fat, low cholesterol diet. - Discussed the benefits of regular aerobic exercise and weight loss. 5. Restless legs syndrome (RLS) - ICD9: 333.94, ICD10: G25.81 - controlled with sinemet - will continue at this time 6. Acute non-recurrent sinusitis, unspecified location - ICD9: 461.9, ICD10: J01.90 - continue with loratadine and flonase but start taking flonase before bed to see if this improves your symptoms - Supportive care with plenty of fluids, rest, and analgesia prn. - Follow up in 3-5 days if symptoms persist or worsen. 7. Encounter for screening mammogram for breast cancer - ICD9: V76.12, ICD10: Z12.31 - MARISSA SCREENING Prescription instructions reviewed with patient as applicable. Potential red flag symptoms discussed with the patient. Reviewed appropriate action plan to take if red flag symptoms occur. Patient agreeable to treatment plan. Cassandra Calles APRN.CNP documented in this encounter [facility] 05-07-2022 Miscellaneous Notes Patient notified, verbalized understanding. Jeff Calvert Ma Summary: Blood work PT came in today for an appointment would like to have blood work be released a couple weeks prior to her follow-up on 06/23/21 it is set to be releaed on the 06/22/22. Please Advise and call PT to schedule appointment. Thanks, April Wood, PSS documented in this encounter [facility] 12-23-2021 History of Presen t illness Narrative Reason for Visit Patient presents with: F/U 6 months Immunizations: Flu vaccination Thursday is a 71 year old female who presents here today for Above Complaints.. Health Maintenance HEPATITIS C SCREENING DTAP,TDAP,TD(1 - Tdap) SHINGRIX VACCINE(1 of 2) HPI Weight is very much stable. HTN: Compliant with medications. Denies any chest pain, palpitations, or edema. No SOB. Doesn't check BP at home generally. Careful with diet to avoid salt, trying to eat more fruits and vegetables, exercises regularly. HPL: Reviewed test results with patient , takes medications regularly , does not report side effects. Conscious to avoid red meats, full fat dairy and its by products. Exercising 3 to 5 times a week. Obesity: eats a lot of salads, eats peanut butter sandwich in the morning. Patient notes she would have to make her self exercise more recently. No problem-specific Assessment & Plan notes found for this encounter. PAST MEDICAL HISTORY Diagnosis Date Protrusion of lumbar intervertebral disc L3-L4 PAST SURGICAL HISTORY Procedure Laterality Date CLOSED TREAT FRACTURE RADIUS & ULNA;WO MAN 02/23/[address]Rodney Hope HYSTERECTOMY HX 1987 LUMBAR OR CAUDAL EPIDURAL STEROID INJECTION REMOVE CATARACT, INSERT LENS,EX 03/06/2016 FAMILY HISTORY Problem Relation Age of Onset Diabetes Maternal Aunt Diabetes Sister Stroke Sister Social History Tobacco Use Smoking status: Former Years: 40.00 Types: Cigarettes Quit date: 06/28/2013 Years since quittin.4 Smokeless tobacco: Never Substance Use Topics Alcohol use: No Drug use: No Past medical history, appointments, medications, allergies reviewed. Pertinent Lab/Diagnostic Studies are reviewed and discussed today Current Outpatient Medications: carbidopa-levodopa (SINEMET 25-100) 25-100 mg per tablet simvastatin (ZOCOR) 40 mg tablet omeprazole (PRILOSEC) 20 mg capsule Magnesium 250 mg tab [id number] (CALTRATE 600+D PLUS MINERALS) 600 mg calcium- 800 unit-50 mg tab pyridoxine, vitamin B6, (VITAMIN B-6) 100 mg tablet polyethylene glycol 3350 (MIRALAX) 17 gram/dose powder Glucosamine (GLUCOSAMINE RELIEF) 1,000 mg tab polyethylene glycol 3350 (MIRALAX, GLYCOLAX) 17 gram packet Review of Systems CONSTITUTIONAL: No fevers, chills night sweats, unintended weight loss CARDIOVASCULAR: No chest pain, dyspnea, palpitations, orthopnea, PND, ankle edema. PULM: No dyspnea, unexplained cough. GI: No dysphagia/odynophagia, problematic reflux, constipation, diarrhea, changes in stool habits, hematochezia, melena. : No new urinary complaints, including dysuria, gross hematuria or pyuria. NEURO: No new balance problems, peripheral weakness/paresthesias or numbness of concern. Physical Exam BP 124/64 (BP Site: Left Arm, BP Position: Sitting, BP Cuff Size: Large Adult) Pulse 71 Temp 36.7 C (98.1 F) Resp 12 Ht 165.1 cm (5' 5 ) Wt 89.8 kg (198 lb) SpO2 97% BMI 32.95 kg/m General appearance: Well appearing, alert, in no acute distress, well nourished. Skin: Skin color, texture, turgor normal, no suspicious rashes or lesions Head: Normocephalic, no masses, lesions, tenderness or abnormalities Eyes: Anicteric sclera. Pupils are equally round and reactive to light. Extraocular movements are intact. Lungs: Lungs clear to auscultation. No wheezing, rhonchi, rales Heart: RRR without murmur, gallop, or rubs. Extremities: No deformities, edema, skin discoloration, clubbing or cyanosis. Good capillary refill. ASSESSMENT/PLAN: 1. Mixed hyperlipidemia - ICD9: 272.2, ICD10: E78.2 (primary diagnosis) - COMP METABOLIC PANEL - LIPID PANEL BASIC 2. Need for influenza vaccination - ICD9: V04.81, ICD10: Z23 - INFLUENZA SEASONAL QUADRIVALENT HIGH DOSE AGE 65+ 3. Obesity (BMI 30.0-34.9) - ICD9: 278.00, ICD10: E66.9 - CONSULT TO NUTRITION THERAPY - TSH BLD 4. Gastroesophageal reflux disease without esophagitis - ICD9: 530.81, ICD10: K21.9 Yael Cain MD documented in this encounter [facility] 11-20-2021 Miscellaneous Notes Patient phones requesting refills as follows: Requested Prescriptions Pending Prescriptions Disp Refills carbidopa-levodopa (SINEMET 25-100) 25-100 mg per tablet [Pharmacy Med Name: CARBIDOPA/LEVODOPA 25-100 MG Tablet] 180 tablet 3 Sig: TAKE 1 TABLET TWICE DAILY simvastatin (ZOCOR) 40 mg tablet [Pharmacy Med Name: SIMVASTATIN 40 MG Tablet] 90 tablet 3 Sig: TAKE 1 TABLET DAILY AT BEDTIME. omeprazole (PRILOSEC) 20 mg capsule [Pharmacy Med Name: OMEPRAZOLE 20 MG Capsule Delayed Release] 90 capsule 3 Sig: TAKE 1 CAPSULE EVERY DAY TAWANDA-06/20/21 Labs-04/15/21 NOV-12/23/21 meds filled 01/25/21 Please review and advise. Tiarra De Guzman LPN documented in this encounter [facility] 09-23-2021 Miscellaneous Notes Records show a valid rx for all prescriptions being requested below. Karie Montoya LPN documented in this encounter [facility] 07-05-2021 Miscellaneous Notes July 05, 2021 PID: [id number] Thursday [address] [address] Dear Ms. Thursday, We are pleased to inform you that the results of your recent breast imaging exam on 07/05/2021 are normal. Early detection of cancer is very important. We also understand recommendations regarding breast cancer screening are controversial. Please discuss with your primary care provider which strategy is best for you and whether a mammogram is right for you. Your imaging studies and report will be kept on file at [facility] as part of your permanent medical record and are available for your continuing care. Thank you for allowing us to help in meeting your health care needs. Sincerely, Dr. Harrell Interpreting Radiologist [facility] (Normal over 40) documented in this encounter [facility] 07-05-2021 History of Presen t illness Narrative Radiology Service Progress Note PATIENT NAME: Thursday DATE OF SERVICE: July 05, 2021 TIME: 6:59 AM PATIENT IDENTITY VERIFICATION COMPLETED USING TWO (2) IDENTIFIERS: Name and Date of confirmed by patient verbally. FALL SCREENING: Has the patient had 2 falls in the last year or 1 fall with injury or currently using an Ambulatory Assistive Device (Walker, Cane, Wheelchair, Crutches, etc.)? No PATIENT GENDER DATA: Female. status: : No status: NO. PATIENT RELEVANT IMPLANT DATA REVIEWED: Not Applicable RADIOLOGY DEPARTMENT: Mammography PERIPHERAL IV DATA: Not applicable SIGNED BY: RT John(R) July 05, 2021 6:59 AM documented in this encounter [facility] Evaluation note Diagnosis Breast cancer screening by mammogram [facility]* Diagnosis Restless legs syndrome (RLS) Mixed hyperlipidemia Gastroesophageal reflux disease without esophagitis Esophageal reflux documented [facility]* Diagnosis Restless legs syndrome (RLS) Mixed hyperlipidemia Gastroesophageal reflux disease without esophagitis Esophageal reflux documented [facility]* Diagnosis Mixed hyperlipidemia- Primary Need for influenza vaccination Need for prophylactic vaccination and inoculation against influenza Obesity (BMI 30.0-34.9) Obesity, unspecified Gastroesophageal reflux disease without esophagitis Esophageal reflux documented [facility]* Diagnosis Mixed hyperlipidemia- Primary Obesity (BMI 30.0-34.9) Obesity, unspecified documented [facility]* Diagnosis Medicare annual wellness visit, subsequent- Primary Routine general medical examination at a health care facility Prediabetes Other abnormal glucose Obesity (BMI 30.0-34.9) Obesity, unspecified Mixed hyperlipidemia Restless legs syndrome (RLS) Acute non-recurrent sinusitis, unspecified location Encounter for screening mammogram for breast cancer documented [facility]* Diagnosis Mixed hyperlipidemia Restless legs syndrome (RLS) Gastroesophageal reflux disease without esophagitis Esophageal reflux [facility]* Diagnosis Encounter for screening mammogram for breast cancer documented [facility]* Diagnosis Mixed hyperlipidemia- Primary Restless legs syndrome (RLS) Gastroesophageal reflux disease without esophagitis Esophageal reflux Encounter for screening mammogram for breast cancer Prediabetes Other abnormal glucose [facility]* Diagnosis Encounter for screening mammogram for breast cancer documented [facility]* Diagnosis Procedure not carried out- Primary Procedure not carried out for other reasons [facility] Diagnosis Annual physical exam- Primary Routine general medical examination at a health care facility Restless legs syndrome (RLS) Mixed hyperlipidemia Gastroesophageal reflux disease without esophagitis Esophageal reflux Routine health maintenance Routine general medical examination at a [facility] care facility Mixed hyperlipidemia- Primary Restless legs syndrome (RLS) Gastroesophageal reflux disease without esophagitis Esophageal reflux Scalp lesion Unspecified disorder of skin and subcutaneous tissue Osteopenia- Primary Disorder of bone and cartilage, unspecified Gastroesophageal reflux disease without esophagitis Esophageal reflux S/P cataract surgery, right Mixed hyperlipidemia Encounter for screening mammogram for malignant neoplasm of breast Other screening mammogram Osteopenia of multiple sites- Primary Gastroesophageal reflux disease without esophagitis Esophageal reflux Mixed hyperlipidemia Chronic bilateral low back pain without sciatica Non morbid obesity due to excess calories Tobacco abuse, in remission Personal history of tobacco use, presenting hazards to health Restless legs syndrome (RLS) Gastroesophageal reflux disease without esophagitis Esophageal reflux Mixed hyperlipidemia documented in this encounter [facility] note* Diagnosis Annual physical exam- Primary Routine general medical examination at a health care facility Restless legs syndrome (RLS) Mixed hyperlipidemia Gastroesophageal reflux disease without esophagitis Esophageal reflux Routine health maintenance Routine general medical examination at a [facility] care facility Mixed hyperlipidemia- Primary Restless legs syndrome (RLS) Gastroesophageal reflux disease without esophagitis Esophageal reflux Scalp lesion Unspecified disorder of skin and subcutaneous tissue Osteopenia- Primary Disorder of bone and cartilage, unspecified Gastroesophageal reflux disease without esophagitis Esophageal reflux S/P cataract surgery, right Mixed hyperlipidemia Encounter for screening mammogram for malignant neoplasm of breast Other screening mammogram Osteopenia of multiple sites- Primary Gastroesophageal reflux disease without esophagitis Esophageal reflux Mixed hyperlipidemia Chronic bilateral low back pain without sciatica Non morbid obesity due to excess calories Tobacco abuse, in remission Personal history of tobacco use, presenting hazards to health URI, acute- Primary Acute upper respiratory infections of unspecified site documented in this encounter [facility] note* Diagnosis Annual physical exam- Primary Routine general medical examination at a health care facility Restless legs syndrome (RLS) Mixed hyperlipidemia Gastroesophageal reflux disease without esophagitis Esophageal reflux Routine health maintenance Routine general medical examination at a [facility] care facility Mixed hyperlipidemia- Primary Restless legs syndrome (RLS) Gastroesophageal reflux disease without esophagitis Esophageal reflux Scalp lesion Unspecified disorder of skin and subcutaneous tissue Osteopenia- Primary Disorder of bone and cartilage, unspecified Gastroesophageal reflux disease without esophagitis Esophageal reflux S/P cataract surgery, right Mixed hyperlipidemia Encounter for screening mammogram for malignant neoplasm of breast Other screening mammogram Osteopenia of multiple sites- Primary Gastroesophageal reflux disease without esophagitis Esophageal reflux Mixed hyperlipidemia Chronic bilateral low back pain without sciatica Non morbid obesity due to excess calories Tobacco abuse, in remission Personal history of tobacco use, presenting hazards to health Medicare annual wellness visit, subsequent- Primary Routine general medical examination at a health care facility Falling episodes Lack of coordination Screening for depression Encounter for screening examination for other mental health and behavioral disorders [facility] Diagnosis Annual physical exam- Primary Routine general medical examination at a health care facility Restless legs syndrome (RLS) Mixed hyperlipidemia Gastroesophageal reflux disease without esophagitis Esophageal reflux Routine health maintenance Routine general medical examination at a health care facility Mixed hyperlipidemia- Primary Restless legs syndrome (RLS) Gastroesophageal reflux disease without esophagitis Esophageal reflux Scalp lesion Unspecified disorder of skin and subcutaneous tissue Osteopenia- Primary Disorder of bone and cartilage, unspecified Gastroesophageal reflux disease without esophagitis Esophageal reflux S/P cataract surgery, right Mixed hyperlipidemia Encounter for screening mammogram for malignant neoplasm of breast Other screening mammogram Osteopenia of multiple sites- Primary Gastroesophageal reflux disease without esophagitis Esophageal reflux Mixed hyperlipidemia Chronic bilateral low back pain without sciatica Non morbid obesity due to excess calories Tobacco abuse, in remission Personal history of tobacco use, presenting hazards to health Mixed hyperlipidemia- Primary Prediabetes Other abnormal glucose documented in this encounter [facility] for referral (narrative)* Diagnostic Procedure Only (Routine) - Closed Specialty Diagnoses / Procedures Referred By Meghana sparrow Referred To Contact [facility] Diagnoses Breast cancer screening by mammogram Procedures [facility]SA SCREENING SCREENING MAMMOGRAPHY BI 2-VIEW BREAST INC CAD Yael Cain MD [address] [place] [address] [facility] [address] [place] [id number] Referral ID Status Reason Start Date Expiration Date V isits Requested Visits Authorized [id number] Closed Auto-Generate d Referral 06/20/2021 07/20/2022 1 1 [facility] for referral (narrative)* Diagnostic Procedure Only (Routine) - Authorized Specialty Diagnoses / Procedures Referred By Meghana sparrow Referred To Contact [facility] Diagnoses Encounter for screening mammogram for breast cancer Procedures MARISSA SCREENING SCREENING MAMMOGRAPHY BI 2-VIEW BREAST INC CAD Cassandra Calles APRN.POULTRY HATCHERY SUPERVISOR [address] [place] [address] [facility] [address] [place] [address] Referral ID Status Reason Start Date Expiration Date Visits Requested Visits Authorized [id number] Authorized Auto-Generat ed Referral 07/02/2022 08/01/2023 1 1 [facility] for referral (narrative)* Diagnostic Procedure Only (Routine) - Closed Specialty Diagnoses / Procedures Referred By Contac t Referred To Contact [facility] Diagnoses Encounter for screening mammogram for breast cancer Procedures [facility] SCREENING SCREENING MAMMOGRAPHY BI 2-VIEW BREAST INC CAD Cassandra Calles APRN.POULTRY HATCHERY SUPERVISOR [address] [place] [address] [facility] [address] [place] [address] Referral ID Status Reason Start Date Expiration Date V isits Requested Visits Authorized [id number] Closed Auto-Generate d Referral 07/02/2022 08/01/2023 1 1 [facility] for referral (narrative)* Diagnostic Procedure Only (Routine) - Authorized Specialty Diagnoses / Procedures Referred By Contac t Referred To Contact [facility] Diagnoses Encounter for screening mammogram for breast cancer Procedures [facility] SCREENING SCREENING MAMMOGRAPHY BI 2-VIEW BREAST INC CAD Cassandra Calles APRN.POULTRY HATCHERY SUPERVISOR [address] [place] [address] [facility] [address] [place] [address] Referral ID Status Reason Start Date Expiration Date Visits Requested Visits Authorized [id number] Authorized Auto-Generat ed Referral 07/01/2023 07/30/2024 1 1 [facility] for referral (narrative)* Diagnostic Procedure Only (Routine) - Closed Specialty Diagnoses / Procedures Referred By Contac t Referred To Contact [facility] Diagnoses Encounter for screening mammogram for breast cancer Procedures MARISSA SCREENING SCREENING MAMMOGRAPHY BI 2-VIEW BREAST INC CAD Cassandra Calles APRN.POULTRY HATCHERY SUPERVISOR [address] [place] [address] [facility] [address] [place] [address] Referral ID Status Reason Start Date Expiration Date V isits Requested Visits Authorized [id number] Closed Auto-Generate d Referral 07/01/2023 07/30/2024 1 1 [facility] for visit Narrative* Diagnostic Procedure Only (Routine) - Closed Specialty Diagnoses / Procedures Referred By Contac t Referred To Contact [facility] Diagnoses Breast cancer screening by mammogram Procedures MARISSA SCREENING SCREENING MAMMOGRAPHY BI 2-VIEW BREAST INC CAD Yael Cain MD [address] [place] [address] [facility] [address] [place] [address] Referral ID Status Reason Start Date Expiration Date V isits Requested Visits Authorized [id number] Closed Auto-Generate d Referral 06/20/2021 07/20/2022 1 1 [facility] for visit Narrative* Diagnostic Procedure Only (Routine) - Closed Specialty Diagnoses / Procedures Referred By Contac t Referred To Contact [facility] Diagnoses Encounter for screening mammogram for breast cancer Procedures MARISSA SCREENING SCREENING MAMMOGRAPHY BI 2-VIEW BREAST INC Cassandra Allen APRN.POULTRY HATCHERY SUPERVISOR [address] [place] [address] [facility] [address] [place] [address] Referral ID Status Reason Start Date Expiration Date V isits Requested Visits Authorized [id number] Closed Auto-Generate d Referral 07/02/2022 08/01/2023 1 1 [facility] for visit Narrative* Diagnostic Procedure Only (Routine) - Closed Specialty Diagnoses / Procedures Referred By Contac t Referred To Contact [facility] Diagnoses Encounter for screening mammogram for breast cancer Procedures MARISSA SCREENING SCREENING MAMMOGRAPHY BI 2-VIEW BREAST INC CAD Cassandra Calles APRN.POULTRY HATCHERY SUPERVISOR [address] [place] [address] [facility] [address] [place] [address] Referral ID Status Reason Start Date Expiration Date V isits Requested Visits Authorized [id number] Closed Auto-Generate d Referral 07/01/2023 07/30/2024 1 1 [facility] Summary Purpose Family History No Family History Records FoundNo Family History Records Found Advance Directives No Advanced Directives Records FoundDocuments on File Type Date Recorded Patient 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 Advance Directive(s) 10/23/2020 1:56 PM Documents on File Type Date Recorded Patient 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 Advance Directive(s) 10/23/2020 1:56 PM Reason for Referral Specialty Diagnoses / Procedures Referred By Meghana t Referred To Contact Nutrition Diagnoses Obesity (BMI 30.0-34.9) Mixed hyperlipidemia Procedures CONSULT TO NUTRITION THERAPY OFFICE/OUTPATIENT [facility] 60-74 MINUTES Yael Cain MD [address] [place] [address] Referral ID Status Reason Start Date Expiration Date Visits Requested Visits Authorized [id number] Authorized PCP Requested Referral 12/23/2021 12/23/2022 1 1 Additional Source Comments INFORMATION SOURCE (unrecogn ized section and content) DATE CREATED AUTHOR 02/01/2020 [facility] ([place]) DATE CREATED AUTHOR AUTHOR'S ORGANIZ ATION 01/05/2024 [facility] Source Comments (unrecognize d section and content) In the event this informatio n is protected by the Federal Confidentiality of Alcohol and Drug Abuse Patient Records regulations: The Federal rules restrict any use of the information to criminally investigate or prosecute any alcohol or drug abuse patient.[facility] the event this information is protected by the Federal Confidentiality of Alcohol and Drug Abuse Patient Records regulations: The Federal rules restrict any use of the information to criminally investigate or prosecute any alcohol or drug abuse patient.[facility] the event this information is protected by the Federal Confidentiality of Alcohol and Drug Abuse Patient Records regulations: The Federal rules restrict any use of the information to criminally investigate or prosecute any alcohol or drug abuse patient.[facility] the event this information is protected by the Federal Confidentiality of Alcohol and Drug Abuse Patient Records regulations: The Federal rules restrict any use of the information to criminally investigate or prosecute any alcohol or drug abuse patient.[facility] the event this information is protected by the Federal Confidentiality of Alcohol and Drug Abuse Patient Records regulations: The Federal rules restrict any use of the information to criminally investigate or prosecute any alcohol or drug abuse patient.[facility] the event this information is protected by the Federal Confidentiality of Alcohol and Drug Abuse Patient Records regulations: The Federal rules restrict any use of the information to criminally investigate or prosecute any alcohol or drug abuse patient.[facility] the event this information is protected by the Federal Confidentiality of Alcohol and Drug Abuse Patient Records regulations: The Federal rules restrict any use of the information to criminally investigate or prosecute any alcohol or drug abuse patient.[facility] the event this information is protected by the Federal Confidentiality of Alcohol and Drug Abuse Patient Records regulations: The Federal rules restrict any use of the information to criminally investigate or prosecute any alcohol or drug abuse patient.[facility] the event this information is protected by the Federal Confidentiality of Alcohol and Drug Abuse Patient Records regulations: The Federal rules restrict any use of the information to criminally investigate or prosecute any alcohol or drug abuse patient.[facility] the event this information is protected by the Federal Confidentiality of Alcohol and Drug Abuse Patient Records regulations: The Federal rules restrict any use of the information to criminally investigate or prosecute any alcohol or drug abuse patient.[facility]In the event this information is protected by the Federal Confidentiality of Alcohol and Drug Abuse Patient Records regulations: The Federal rules restrict any use of the information to criminally investigate or prosecute any alcohol or drug abuse patient.[facility] the event this information is protected by the Federal Confidentiality of Alcohol and Drug Abuse Patient Records regulations: The Federal rules restrict any use of the information to criminally investigate or prosecute any alcohol or drug abuse patient.[facility] the event this information is protected by the Federal Confidentiality of Alcohol and Drug Abuse Patient Records regulations: The Federal rules restrict any use of the information to criminally investigate or prosecute any alcohol or drug abuse patient.[facility]In the event this information is protected by the Federal Confidentiality of Alcohol and Drug Abuse Patient Records regulations: The Federal rules restrict any use of the information to criminally investigate or prosecute any alcohol or drug abuse patient.[facility]In the event this information is protected by the Federal Confidentiality of Alcohol and Drug Abuse Patient Records regulations: The Federal rules restrict any use of the information to criminally investigate or prosecute any alcohol or drug abuse patient.[facility]In the event this information is protected by the Federal Confidentiality of Alcohol and Drug Abuse Patient Records regulations: The Federal rules restrict any use of the information to criminally investigate or prosecute any alcohol or drug abuse patient.[facility]In the event this information is protected by the Federal Confidentiality of Alcohol and Drug Abuse Patient Records regulations: The Federal rules restrict any use of the information to criminally investigate or prosecute any alcohol or drug abuse patient.[facility]In the event this information is protected by the Federal Confidentiality of Alcohol and Drug Abuse Patient Records regulations: The Federal rules restrict any use of the information to criminally investigate or prosecute any alcohol or drug abuse patient.[facility]In the event this information is protected by the Federal Confidentiality of Alcohol and Drug Abuse Patient Records regulations: The Federal rules restrict any use of the information to criminally investigate or prosecute any alcohol or drug abuse patient.[facility] Care Teams (unrecognized sec tion and content) Staff Assistant Relationship Specialty Start Date End Date Yael Cain MD [address] [place] [address] PCP - General Internal Medicine 05/08/20 Staff Assistant Relationship Specialty Start Date End Date Yael Cain MD [address] [place] [address] PCP - General Internal Medicine 05/08/20 Staff Assistant Relationship Specialty Start Date End Date Yael Cain MD [address] [place] [address] PCP - General Internal Medicine 05/08/20 Staff Assistant Relationship Specialty Start Date End Date Yael Cain MD [address] [place] [address] PCP - General Internal Medicine 05/08/20 Staff Assistant Relationship Specialty Start Date End Date Yael Cain MD [address] [place] [place] [address] PCP - General Internal Medicine 05/08/20 Staff Assistant Relationship Specialty Start Date End Date Yael Cain MD [address] [place] [address] PCP - General Internal Medicine 05/08/20 Staff Assistant Relationship Specialty Start Date End Date Yael Cain MD [address] [place] [address] PCP - General Internal Medicine 05/08/20 Staff Assistant Relationship Specialty Start Date End Date Yael Cain MD [address] [place] [address] PCP - General Internal Medicine 05/08/20 Staff Assistant Relationship Specialty Start Date End Date Yael Cain MD [address] [place] [address] PCP - General Internal Medicine 05/08/20 Staff Assistant Relationship Specialty Start Date End Date Yael Cain MD [address] [place] [address] PCP - General Internal Medicine 05/08/20 Staff Assistant Relationship Specialty Start Date End Date Yael Cain MD [address] [place] [address] PCP - General Internal Medicine 05/08/20 Staff Assistant Relationship Specialty Start Date End Date Yael Cain MD [address] [place] [address] PCP - General Internal Medicine 05/08/20 Staff Assistant Relationship Specialty Start Date End Date Yael Cain MD [address] [place], [place] [id number] PCP - General Internal Medicine 05/08/20 Staff Assistant Relationship Specialty Start Date End Date Yael Cain MD [address], [place] [address] PCP - General Internal Medicine 05/08/20 Staff Assistant Relationship Specialty Start Date End Date Yael Cain MD [address] [place] [address] PCP - General Internal Medicine 05/08/20 Staff Assistant Relationship Specialty Start Date End Date Yael Cain MD [address] [place] [address] PCP - General Internal Medicine 05/08/20 Staff Assistant Relationship Specialty Start Date End Date Yael Cain MD [address] [place] [address] PCP - General Internal Medicine 05/08/20 Staff Assistant Relationship Specialty Start Date End Date Yael Cain MD [address] [place] [address] PCP - General Internal Medicine 05/08/20 Staff Assistant Relationship Specialty Start Date End Date Yael Cain MD [address] [place], [place] [id number] PCP - General Internal Medicine 05/08/20 Reason for Visit (unrecogniz ed section and content) Reason Comments Refill Request Reason Onset Date Comments F/U 6 months Immunizations 12/23/2021 Flu vaccination Reason Comments Appointment Reason Comments Medicare Wellness [facility]am [facility] Reason Comments Patient Update cough Reason Comments Recheck 6 month follow up Specialty Diagnoses / Procedures Referred By Meghana sparrow Referred To Contact FAMILY MEDICINE Diagnoses Medium risk of autism based on Modified Checklist for Autism in Toddlers, Revised (M-CHAT-R) Procedures med check Yael Cain MD [address] [place] [address] [facility] [address] [address] [place] [address] Referral ID Status Reason Start Date Expiration Date Visits Requested Visits Authorized [id number] Pending Review OON/Self Pay Override 01/02/2023 07/01/2023 1 1 Reason Onset Date Comments Refill Request 11/24/2023 Reason Comments Sinus Problem Nasal congestion,fat igue, cough, fever,ears itch, Left worse x 5 days Reason Comments Medicare Wellness Exam [facility] Reason Comments Orders FOR RECORDS PERTAINING TO PATIENTS WHO ARE OR HAVE BEEN ENROLLED IN A CHEMICAL DEPENDENCY/SUBSTANCEABUSE PROGRAM, SOME INFORMATION MAY BE OMITTED. This clinical summary was aggregated from multiple sources. Caution should be exercised in using it in the provision of clinical care. This summary normalizes information from multiple sources, and as a consequence, information in this document may materially change the coding, format and clinical context of patient data. In addition, data may be omitted in some cases. CLINICAL DECISIONS SHOULD BE BASED ON THE PRIMARY CLINICAL RECORDS. [facility] [employer] [facility]. provides no warranty or guarantee of the accuracy or completeness of information in this document.
== END | disposition home or self-care (01) ==
LOC: CT 16:23
PROVIDERS: PCP Internal Medicine; Referring Provider Physician Assistant; Visit Provider Physician Assistant
DX: S40.022A Contusion of left upper arm, initial encounter (principal); X58.XXXA Exposure to other specified factors, initial encounter
CPT/HCPCS: 73200

== ENCOUNTER → 2024-07-20 | Outpatient (CLI) | payer MEDICARE, SELFPAY ==
--- NOTE | 2024-07-20 16:53 | RAD_ITS ---
PROCEDURE: HAND MIN 3 VIEWS 07/20/2024 REASON FOR EXAM: PAIN TECHNIQUE: 4 views of the right hand COMPARISON: None FINDINGS: Bones: No acute fracture. Joints: Normal alignment. Soft tissues: Soft tissues are unremarkable. Other: Partially visualized fixation hardware transversing the distal radius. RAD/Hand Min 3 Views IMPRESSION: NEGATIVE HAND SERIES Reading Location: [facility]
--- NOTE | 2024-07-20 16:53 | RAD_ITS ---
PROCEDURE: WRIST MIN 3 VIEWS 07/20/2024 REASON FOR EXAM: PAIN TECHNIQUE: 3 views of the right wrist COMPARISON: None FINDINGS: Bones: No visible fracture. No suspicious bone lesion. Status post ORIF of the distal radius. Joints: Normal alignment. Soft tissues: Soft tissues are unremarkable. Other: RAD/Wrist min 3 Views IMPRESSION: Postop changes of the distal radius as described above. No acute fracture. Reading Location: [facility]
== END | disposition home or self-care (01) ==
LOC: RAD 16:47
PROVIDERS: PCP Internal Medicine; Referring Provider Surgery Plastic and Reconstructive Surgery; Visit Provider Surgery Plastic and Reconstructive Surgery
DX: M79.644 Pain in right finger(s) (principal)
CPT/HCPCS: 73110; 73130

== ENCOUNTER → 2024-07-22 | Outpatient (CLI) | payer MEDICARE, SELFPAY ==
--- NOTE | 2024-07-22 10:11 | MRI_ITS ---
EXAM: MRI of the right hand without contrast CLINICAL HISTORY: Flexor tendon rupture. Unable to flex the index finger. COMPARISON: Right hand study of 07/21/2019 TECHNIQUE: MRI of the right hand without contrast. FINDINGS: Centered about the carpal tunnel is seen Disruption of the 2nd finger flexor tendon, with at least mild degree separation noted (with resultant wavy appearance of the tendon of the hand (coronal image 7 of 17)). No additional tendon tear is identified. The remainder of the carpal tunnel shows no abnormality. No acute osseous signal change is seen. No joint effusion is seen. No free or loculated fluid collection is noted. Mild degenerative changes are seen throughout the fingers and also the entire 1st ray, including the 1st carpal-metacarpal joint mild degenerative changes are seen of the scaphoid trapezial trapezoid joint. MRI/Upper Ext/No Jt/ wo IMPRESSION: 1. Disruption of the left 2nd finger flexor tendon, centered at the carpal tunn el. 2. Degenerative changes as noted. Reading Location: [id number]
== END | disposition home or self-care (01) ==
LOC: MRI 10:00
PROVIDERS: PCP Internal Medicine; Referring Provider Surgery Plastic and Reconstructive Surgery; Visit Provider Surgery Plastic and Reconstructive Surgery
DX: S66.819A Strain of other specified muscles, fascia and tendons at wrist and hand level, unspecified hand, initial encounter (principal); X58.XXXA Exposure to other specified factors, initial encounter
CPT/HCPCS: 73218

== ENCOUNTER 2024-09-20 09:00 | Outpatient (RCR) | payer MEDICARE, SELFPAY ==
--- NOTE | 2024-08-25 07:04 | HP.OTEVAL_ITS ---
Patient's Visit Information Visit Information Visit Information: ESTEBAN Pisano THURSDAY is a 74 year old F, referred to Occupational Therapy by CARRIE Turner, with a diagnosis of Right IF DIP arthrodesis, hardwear removal. 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 pt stats she suffered a right wrist fx back in 2017 and had ORIF. States she went to open her refrigerator door and felt a pop in her IF. Pt was able to have MRI that suspected. rupture within the Carpal tunnel. Dr. Bonds rec'd removal of the hardware to avoid further tendon ruptures. Pt decided to go through with sx. right handed pt likes to walk and do exercises. pt states she is limited with ADLs and IADLs at this time. Pain right hand: Current Pain Intensity: 1 Pain Intensity Range: 0 and 2 ROM Wrist: right 30/45 left WNL ROM Comments: pt demo with good ROM 1 week post op- stitches are intact look good - this therapist will monitor and remove when healed. Strength Strength Comments: will test later date Sensation Sensation Comments: tip of Right IF "feels funny not tingling but not numb" Quick DASH-Disab of Arm,Shoulder& Hand Quick DASH Score: 59.0900 Goals Goal:Daily scar massage when approriate: Yes Goal:ROM equal to unaffected hand: Yes Goal:Air Bag Buffer/Pinch strength at least 75% of unaffected hand: Yes Comment: will not initiate until week 5-6 as hardwear was removed Goal:No pain with affected hand use: Yes Goal:Full use of affected hand in daily activities including work: Yes Goal:Decrease scar hypersensitivity: Yes Rehabilitation General Assessment: pt arrives following right distal radius heardwear removal and right IF DIP arthrodesis. Pt is limited with functional use of right UE due to healing structures and limitations with lifting while sites are healing. Pt demo need for skilled OT services 1-2x week for 6 weeks to ensure pts has returned to her PLOF. Today therapist reviewed with pt AROM ex. and scar mtg. pt demo understanding and agree to POC. Rehabilitation Potential: Excellent Anticipated Interventions Anticipated Interventions: Early Active Motion, A/AAROM/PROM, Strengthening, Scar Care, Triggerpoint Release, Sensory Retraining, Modalities, Orthoses, Joint Protection/Energy Conservation, Ergonomic Education, Education re assistive Equipment, Education re Diagnosis and Home Program Visit Plan Frequency: 1-2x /Week Duration: 6 Weeks TEXT: Thank you for the opportunity to evaluate your patient. For Medicare and Medicare HMO plans, please review the plan of care and approve it. It will need to be FAXED BACK to us at [phone] for Medicare purposes. Please let me know if there are questions or concerns regarding this plan of care. Physician Sig nature: Date:
--- NOTE | 2024-12-27 11:54 | HP.OT.NRP ---
Patient Information Patient Information: ESTEBAN Pisano THURSDAY was seen in my office for initial evaluation on 08/24/24. The following Plan of Care was established for this patient: POC Established Initial Frequency: 1-2x /Week Initial Duration: 6 Weeks Plan: cont with light use as tolerated for scar massage light strengthening and ROM Anticipated Interventions Anticipated Interventions: Early Active Motion, A/AAROM/PROM, Strengthening, Scar Care, Triggerpoint Release, Sensory Retraining, Modalities, Orthoses, Joint Protection/Energy Conservation, Ergonomic Education, Education re assistive Equipment, Education re Diagnosis and Home Program Last Seen Last Seen: This patient was last seen in our office 09/20/24. Pertinent comments regarding their Occupational therapy will appear below: no further apts have been scheduled and due to time lapse in services pt is d/c at this time. At this point I will be discontinuing this patient from occupational therapy. I would be happy to see this patient again in the future if found appropriate by the physician. Thank you! Ana Roth, OTR/L, CHT
== END 2024-09-20 19:00 | disposition home or self-care (01) ==
LOC: OT 09:00
PROVIDERS: PCP Internal Medicine; Referring Provider Physician Assistant Surgical; Visit Provider Physician Assistant Surgical
DX: S66.110D Strain of flexor muscle, fascia and tendon of right index finger at wrist and hand level, subsequent encounter (principal)
CPT/HCPCS: 97110; 97166; 97530